=== PATIENT | female | born 1930 | race Caucasian/White ===

== ENCOUNTER 2016-09-10 19:05 | Inpatient (IN) | payer OTHER ==
--- NOTE | 2016-09-10 19:13 | EDPHY ---
H & P Time Seen by Provider: 09/10/16 19:06 HPI/ROS: CHIEF COMPLAINT: Altered mental status HISTORY OF PRESENT ILLNESS: Patient is an 86-year-old female who was talking on the phone with her daughter. Her daughter noted that her mental status started decreasing. She began slurring words. Patient's daughter called the patient's care facility. EMS was activated. Aircraft Painter found the patient hypoglycemic with the blood glucose of 33. She was given glucose. Her sugar improved to 179. The patient's mental status returned to normal. Patient is currently asymptomatic. She has no complaints. The patient's daughter requested that she be transferred to the hospital for further evaluation. The patient takes sliding scale insulin which is self administer. REVIEW OF SYSTEMS: My complete review of systems is negative except as mentioned in the HPI. Past Medical/Surgical History: Includes diabetes Smoking Status: Never smoked Physical Exam: Vitals noted GENERAL: Well-appearing, in no acute distress, alert. HEENT: Eyes normal to inspection, normal pharynx, no signs of dehydration. NECK: No thyromegaly, no lymphadenopathy, supple. RESPIRATORY: Clear to auscultation bilaterally, no rales, rhonchi or wheezing. CVS: Regular rate and rhythm, no rubs, murmurs, or gallops. ABDOMEN: Soft, nontender, nondistended, no organomegaly. BACK: Normal to inspection, no CVA tenderness. SKIN: Normal color, no rash, warm, dry. No pallor. EXTREMITIES: No pedal edema, no calf tenderness, no Homans sign or cords, no joint swelling. NEURO/PSYCH: Higher functions: Alert and Oriented x3. Normal speech and cognition. Normal mood and affect. Cranial nerves: Normal as tested. Cerebellar: Normal as tested. Good finger to nose, good [id number], normal gait. Peripheral exam: Normal motor exam. Normal sensation. Normal reflexes. Constitutional: Initial Vital Signs Temperature (C) 36.7 C 09/10/16 19:05 Heart Rate 61 09/10/16 19:05 Respiratory Rate 16 09/10/16 19:05 Blood Pressure 111/58 L 09/10/16 19:05 O2 Sat (%) 87 L 09/10/16 19:05 O2 Delivery Mode Nasal Cannula O2 (L/minute) 2 Allergies/Adverse Reactions: Sulfa (Sulfonamide Antibiotics) Allergy (Unknown, Verified 09/07/14 08:39) Home Medications: Medication Instructions Recorded Aspirin 81mg (OTC) 03/22/14 Atorvastatin Calcium 03/22/14 Donepezil HCl 03/22/14 GLIPIZIDE 03/22/14 Lantus 100 UNITS/ML (RX) 03/22/14 Losartan Potassium 03/22/14 Mapap 03/22/14 Namenda liquid 03/22/14 SENEXON-S TABLET 03/22/14 Medical Decision Making ED Course/Re-evaluation: In the emergency department I met EMS on arrival. I took report from the textile coating machine operator. Laboratory studies were ordered. Patient was given food. On the patient's initial i-STAT her creatinine was noted to be elevated 2.3. A CBC and chemistry panel were pending. The chemistry showed elevated BUN and creatinine of 2.2. Patient was given normal saline 500 mL IV. On recheck the patient's repeat creatinine was 2.1 and BUN was 40. Glucose was 85. Patient was given normal saline 500 mL IV. Discussed the plan for admission and observation. I discussed the case with Dr. Worrell. She will admit the patient. Differential Diagnosis: My differential includes but is not limited to hypoglycemia, hyperglycemia, electrolyte abnormality, bacteremia, sepsis, CVA, ACS, dysrhythmia, UTI - Data Points Laboratory Results: Laboratory Results 09/10/16 19:17 09/10/16 21:05 09/10/16 09/10/16 09/10/16 21:05 19:17 19:17 WBC 10.74 10^3/uL H 10^3/uL (3.80-9.50) RBC 4.26 10^6/uL 10^6/uL (4.18-5.33) Hgb 12.1 g/dL L g/dL (12.6-16.3) POC Hgb Hct 38.1 % % (38.0-47.0) POC Hct MCV 89.4 fL fL (81.5-99.8) MCH 28.4 pg pg (27.9-34.1) MCHC 31.8 g/dL L g/dL (32.4-36.7) RDW 15.0 % % (11.5-15.2) Plt Count 241 10^3/uL 10^3/uL (150-400) MPV 10.3 fL fL (8.7-11.7) Neut % (Auto) 79.5 % H % (39.3-74.2) Lymph % (Auto) 10.3 % L % (15.0-45.0) Dent % (Auto) 9.2 % % (4.5-13.0) Eos % (Auto) 0.4 % L % (0.6-7.6) Baso % (Auto) 0.3 % % (0.3-1.7) Nucleat RBC Rel Count 0.0 % % (0.0-0.2) Absolute Neuts (auto) 8.54 10^3/uL H 10^3/uL (1.70-6.50) Absolute Lymphs (auto) 1.11 10^3/uL 10^3/uL (1.00-3.00) Absolute Monos (auto) 0.99 10^3/uL H 10^3/uL (0.30-0.80) Absolute Eos (auto) 0.04 10^3/uL 10^3/uL (0.03-0.40) Absolute Basos (auto) 0.03 10^3/uL 10^3/uL (0.02-0.10) Absolute Nucleated RBC 0.00 10^3/uL 10^3/uL (0-0.01) Immature Gran % 0.3 % % (0.0-1.1) Immature Gran # 0.03 10^3/uL 10^3/uL (0.00-0.10) POC Sodium Sodium 141 mEq/L mEq/L 140 mEq/L mEq/L (134-144) (134-144) POC Potassium Potassium 4.9 mEq/L mEq/L 4.2 mEq/L mEq/L (3.5-5.2) (3.5-5.2) POC Chloride Chloride 106 mEq/L mEq/L 105 mEq/L mEq/L (97-110) (97-110) Carbon Dioxide 25 mEq/l mEq/l 25 mEq/l mEq/l (22-31) (22-31) Anion Gap 10 mEq/L mEq/L 10 mEq/L mEq/L (8-16) (8-16) POC BUN BUN 40 mg/dL H mg/dL 39 mg/dL H mg/dL (7-23) (7-23) Creatinine 2.1 mg/dL H mg/dL 2.2 mg/dL H mg/dL (0.6-1.0) (0.6-1.0) POC Creatinine Estimated GFR 22 21 Glucose 85 mg/dL mg/dL 119 mg/dL H mg/dL (70-100) (70-100) POC Glucose Calcium 8.3 mg/dL L mg/dL 8.5 mg/dL mg/dL (8.5-10.4) (8.5-10.4) 09/10/16 19:05 WBC RBC Hgb POC Hgb 12.9 gm/dL gm/dL (12.3-15.9) Hct POC Hct 38 % % (35.5-47.5) MCV MCH MCHC RDW Plt Count MPV Neut % (Auto) Lymph % (Auto) Dent % (Auto) Eos % (Auto) Baso % (Auto) Nucleat RBC Rel Count Absolute Neuts (auto) Absolute Lymphs (auto) Absolute Monos (auto) Absolute Eos (auto) Absolute Basos (auto) Absolute Nucleated RBC Immature Gran % Immature Gran # POC Sodium 143 mEq/L mEq/L (134-144) Sodium POC Potassium 4.0 mEq/L mEq/L (3.3-5.0) Potassium POC Chloride 104 mEq/L mEq/L (96-108) Chloride Carbon Dioxide Anion Gap POC BUN 35 mg/dL H mg/dL (7-23) BUN Creatinine POC Creatinine 2.3 mg/dL H mg/dL (0.6-1.2) Estimated GFR Glucose POC Glucose 137 mg/dL H mg/dL (70-100) Calcium Medications Given: Discontinued Medications Sodium Chloride (Ns) 500 mls @ 0 mls/hr IV ONCE ONE PRN Reason: Wide Open Stop: 09/10/16 20:03 Last Admin: 09/10/16 20:24 Dose: 500 mls Point of Care Test Results: 09/10/16 19:05 POC Sodium 143 POC Potassium 4.0 POC Chloride 104 POC BUN 35 H POC Creatinine 2.3 H POC Glucose 137 H Departure - Departure Disposition: [facility] Acute Clinical Impression: Hypoglycemia, Renal insufficiency Condition: Good Instructions: Hypoglycemia in a Person with Diabetes (ED) Additional Instructions: Eat regular meals. Referrals: Patient,NotPresent [Unknown] - As per Instructions
[2016-09-10 19:33] LABS: % IMMATURE GRANULYOCYTES 0.3 % (0.0-1.1); ABSOLUTE IMMATURE GRANULOCYTES 0.03 10^3/uL (0.00-0.10); ADD DIFF? NO; ADD MORPH? NO; ADD SCAN? NO; ATYPICAL LYMPHOCYTE FLAG 10 (0-99); FRAGMENT RBC FLAG 0 (0-99); HEMATOCRIT 38.1 % (38.0-47.0); HEMOGLOBIN 12.1 g/dL (12.6-16.3); LEFT SHIFT FLG 0 (0-99); LIPEMIA HEMOLYSIS FLAG 80 (0-99); MEAN CELL HEMOGLOBIN 28.4 pg (27.9-34.1); MEAN CELL HEMOGLOBIN CONCENTR. 31.8 g/dL (32.4-36.7); MEAN CELL VOLUME 89.4 fL (81.5-99.8); MEAN PLATELET VOLUME 10.3 fL (8.7-11.7); PLATELET CLUMPS FLAG 0 (0-99); PLATELET COUNT 241 10^3/uL (150-400); RED BLOOD CELL COUNT 4.26 10^6/uL (4.18-5.33)
[2016-09-10 19:52] LABS: ANION GAP 10 mEq/L (8-16); CALCIUM 8.5 mg/dL (8.5-10.4); CARBON DIOXIDE 25 mEq/l (22-31); CHLORIDE 105 mEq/L (97-110); CREATININE 2.2 mg/dL (0.6-1.0); GLOMERULAR FILTRATION RATE 21; GLUCOSE 119 mg/dL (70-100); POTASSIUM 4.2 mEq/L (3.5-5.2); SODIUM 140 mEq/L (134-144)
[2016-09-10] MEDS ORDERED: NS 500 ML IV ONE (20:02)
[2016-09-10 21:23] LABS: ANION GAP 10 mEq/L (8-16); CALCIUM 8.3 mg/dL (8.5-10.4); CARBON DIOXIDE 25 mEq/l (22-31); CHLORIDE 106 mEq/L (97-110); CREATININE 2.1 mg/dL (0.6-1.0); GLOMERULAR FILTRATION RATE 22; GLUCOSE 85 mg/dL (70-100); POTASSIUM 4.9 mEq/L (3.5-5.2); SODIUM 141 mEq/L (134-144)
[2016-09-10] MEDS ORDERED: ACETAMINOPHEN 500 MG TAB PO PRN (23:57)
[2016-09-10] MEDS ORDERED: ONDANSETRON DISINTEGRATING 4 MG TAB PO PRN (23:57)
[2016-09-10] MEDS ORDERED: ONDANSETRON 4 MG/2 ML VIAL IVP PRN (23:57)
[2016-09-10] MEDS ORDERED: oxyCODONE IR 5 MG TAB PO PRN (23:57)
[2016-09-11] MEDS ORDERED: D50W 25 GM/50 ML SYR IVP PRN
[2016-09-11] MEDS: NS 1,000 ML IV SCH ×2 (00:23→14:12)
--- NOTE | 2016-09-11 02:45 | PDGENHP ---
History and Physical - Chief Complaint hypoglycemia - History of Present Illness patient is an 86-year-old female with history of DM 2 on insulin, hypertension , hyperlipidemia and dementia who was brought to the ED after being found hypoglycemic in her assisted living facility. History from patient is limited due to her baseline dementia. Apparently patient was on the phone with her daughter earlier in the day, when she began slurring her words and sounded confused. Her daughter immediately called EMS to her mother's residence. Upon EMS arrival they found her blood sugar to be low at 33. IV was established and she was given IV dextrose in the field with immediate improvement in her mental status. She was then transported to the ED for further evaluation. Patient herself denies any recent illnesses, denies any fevers, chills, headache, dizziness, cough, nausea, vomiting, diarrhea. She states she has been maintaining her usual p.o. intake recently without a significant change. On arrival to the ED patient was afebrile hemodynamically stable, and fingerstick was noted to be 186. she was entirely asymptomatic, neurologically intact and back to her baseline mental status. Labs were obtained and revealed normal CBC, but elevated BUN and creatinine consistent with DEREJE. She was given gentle IV fluid hydration and admitted to the hospital service for further management. History Information - Allergies/Home Medication List Allergies/Adverse Reactions: Sulfa (Sulfonamide Antibiotics) Allergy (Unknown, Verified 01/12/14 08:39) Home Medications: Acetaminophen [Tylenol ES 500 mg (*)] 1,000 mg PO Q8H PRN 09/10/16 [Last Taken Unknown] Aspirin EC [Aspirin EC 81 mg (*)] 81 mg PO DAILY@09/10/16 [Last Taken ] Atorvastatin Calcium [Lipitor 20 mg (*)] 20 mg PO DAILY@09/10/16 [Last Taken 09/10/16] Bisacodyl [Dulcolax] 10 mg RC Q24H PRN 09/10/16 [Last Taken Unknown] Donepezil HCl 10 mg PO DAILY@09/10/16 [Last Taken 09/10/16] Ergocalciferol [Vitamin D2 (*)] 50,000 unit PO Q14D@09/10/16 [Last Taken 07/22] Escitalopram Oxalate [Lexapro] 10 mg PO DAILY@09/10/16 [Last Taken 09/10/16] Furosemide [Lasix 20 MG (*)] 20 mg PO DAILY@09/10/16 [Last Taken 09/10/16] Insulin Glargine [Lantus 100 UNITS/ML (*)] 25 units SC BID@08,09/10/16 [Last Taken 09/10/16] Insulin Lispro [humALOG LISPRO 100 units/ml (*)] 8 unit SC BID@,09/10/16 [ Last Taken 09/10/16 12:00] Insulin Lispro [humALOG LISPRO 100 units/ml (*)] 10 unit SC DAILY@09/10/16 [ Last Taken 09/10/16] Linagliptin [Tradjenta] 5 mg PO DAILY@09/10/16 [Last Taken 09/10/16] Losartan Potassium [Cozaar 25 mg (*)] 25 mg PO DAILY@09/10/16 [Last Taken 10/22] Mag Hydrox/Al Hydrox/Simeth [Maalox Maximum Strength Suspension] 30 ml PO Q8H PRN 09/10/16 [Last Taken Unknown] Memantine HCl [Namenda Xr] 28 mg PO DAILY@09/10/16 [Last Taken 09/10/16] Sennosides/Docusate Sodium [Senna-Docusate Sodium Tablet] 1 each PO BID@, [Last Taken 09/10/16] Solifenacin Succinate [Vesicare] 10 mg PO DAILY@09/10/16 [Last Taken 09/10/16 ] I have personally reviewed and updated: family history, medical history, social history, surgical history - Past Medical History Additional medical history: DM2. Hypertension. HLD. Dementia - Surgical History Reports: no pertinent surgical hx - Family History Positive for: non-pertinent - Social History Smoking Status: Never smoked Alcohol Use: None Drug Use: None Additional social history: Patient lives in assisted living facility, walks independently Review of Systems ROS: 10pt was reviewed & negative except for what was stated in HPI & below Physical Exam Temp Pulse Resp BP Pulse Ox 36.4 C 79 16 106/50 L 97 09/10/16 22:45 09/10/16 22:45 09/10/16 22:45 09/10/16 22:45 09/10/16 22:45 O2 (L/minute) 2 Constitutional: no apparent distress, appears nourished, not in pain Eyes: PERRL, anicteric sclera, EOMI Ears, Nose, Mouth, Throat: moist mucous membranes, hearing normal, ears appear normal, no oral mucosal ulcers Cardiovascular: regular rate and rhythym, no murmur, rub, or gallop, pulses symmetric bilaterally, No JVD, No edema Peripheral Pulses: 2+: dorsalis-pedis (R), dorsalis-pedis (L) Respiratory: no respiratory distress, no rales or rhonchi, clear to auscultation Gastrointestinal: normoactive bowel sounds, soft, non-tender abdomen, no palpable masses Genitourinary: no bladder fullness, no bladder tenderness Skin: warm, normal color, no rashes or abrasions, no fluctuance, no induration, No mottled Musculoskeletal: full muscle strength, no muscle tenderness, normal joint ROM, no joint effusions Neurologic: AAOx3, sensation intact bilaterally, CN II-XII Intact, No weakness, No numbness, No pronator drift, No facial droop Psychiatric: interacting appropriately, not anxious, not encephalopathic, thought process linear Lab Data & Imaging Review 09/10/16 19:17 09/10/16 21:05 WBC 10.74 10^3/uL (3.80-9.50) H 09/10/16 19: RBC 4.26 10^6/uL (4.18-5.33) 09/10/16 19: Hgb 12.1 g/dL (12.6-16.3) L 09/10/16 19: POC Hgb 12.9 gm/dL (12.3-15.9) 09/10/16 19:05 Hct 38.1 % (38.0-47.0) 09/10/16 19: POC Hct 38 % (35.5-47.5) 09/10/16 19:05 MCV 89.4 fL (81.5-99.8) 09/10/16 19: MCH 28.4 pg (27.9-34.1) 09/10/16 19: MCHC 31.8 g/dL (32.4-36.7) L 09/10/16 19:17 RDW 15.0 % (11.5-15.2) 09/10/16 19:17 Plt Count 241 10^3/uL (150-400) 09/10/16 19:17 MPV 10.3 fL (8.7-11.7) 09/10/16 19:17 Neut % (Auto) 79.5 % (39.3-74.2) H 09/10/16 19:17 Lymph % (Auto) 10.3 % (15.0-45.0) L 09/10/16 19:17 [place]ye % (Auto) 9.2 % (4.5-13.0) 09/10/16 19:17 Eos % (Auto) 0.4 % (0.6-7.6) L 09/10/16 19:17 Baso % (Auto) 0.3 % (0.3-1.7) 09/10/16 19:17 Nucleat RBC Rel Count 0.0 % (0.0-0.2) 09/10/16 19:17 Absolute Neuts (auto) 8.54 10^3/uL (1.70-6.50) H 09/10/16 19:17 Absolute Lymphs (auto) 1.11 10^3/uL (1.00-3.00) 09/10/16 19:17 Absolute Monos (auto) 0.99 10^3/uL (0.30-0.80) H 09/10/16 19:17 Absolute Eos (auto) 0.04 10^3/uL (0.03-0.40) 09/10/16 19:17 Absolute Basos (auto) 0.03 10^3/uL (0.02-0.10) 09/10/16 19:17 Absolute Nucleated RBC 0.00 10^3/uL (0-0.01) 09/10/16 19:17 Immature Gran % 0.3 % (0.0-1.1) 09/10/16 19:17 Immature Gran # 0.03 10^3/uL (0.00-0.10) 09/10/16 19:17 POC Sodium 143 mEq/L (134-144) 09/10/16 19:05 Sodium 141 mEq/L (134-144) 09/10/16 21:05 POC Potassium 4.0 mEq/L (3.3-5.0) 09/10/16 19:05 Potassium 4.9 mEq/L (3.5-5.2) 09/10/16 21:05 POC Chloride 104 mEq/L (96-108) 09/10/16 19:05 Chloride 106 mEq/L (97-110) 09/10/16 21:05 Carbon Dioxide 25 mEq/l (22-31) 09/10/16 21:05 Anion Gap 10 mEq/L (8-16) 09/10/16 21:05 POC BUN 35 mg/dL (7-23) H 09/10/16 19:05 BUN 40 mg/dL (7-23) H 09/10/16 21:05 Creatinine 2.1 mg/dL (0.6-1.0) H 09/10/16 21:05 POC Creatinine 2.3 mg/dL (0.6-1.2) H 09/10/16 19:05 Estimated GFR 22 09/10/16 21:05 Glucose 85 mg/dL (70-100) 09/10/16 21:05 POC Glucose 137 mg/dL (70-100) H 09/10/16 19:05 Calcium 8.3 mg/dL (8.5-10.4) L 09/10/16 21:05 Assessment & Plan Assessment: Patient is an 86-year-old female with a history of DM 2 on insulin, hypertension, hyperlipidemia and dementia who had an episode of confusion earlier in the day, was found to be significantly hypoglycemic by EMS. Dextrose was administered and by arrival to the ED patient was asymptomatic and back to her baseline mental status. However ED workup does reveal acute renal failure, so she was admitted for further observation and management. Plan: # acute hypoglycemia Patient is on several oral and injectable hypoglycemic agents, as well as insulin. There does not appear to have been an acute change, however, hypoglycemia is likely due to decreased clearance of her DM meds due to acute renal failure. FS on EMS's arrival was 33, after 1 amp D50 it was 186 on ED BMP. Repeat BMP shows glucose was again low at 85, and she was given her dinner at this time. MN check was 140. Will continue to monitor finger stick closely, hold noninsulin meds and provide only sliding scale coverage. When looking over her SNF fingerstick log, it appears she has had strict glucose control ( 80-120 range). Given her age, consider reducing her DM meds upon discharge. # acute renal failure BUN/Cr are elevated above previous known baseline on admission labs. Other electrolytes are normal. Suspect pre-renal etiology, as patient appears clinically dry on exam. Will continue IVF hydration overnight and continue to trend. Will also check UA, urine electrolytes. # hypertension BP stable, confirm and cont home meds # Dementia, acute encephalopathy Suspect acute encephalopathy daughter identified prior to arrival was due to acute hypoglycemia. With correction of her blood glucose, patient has returned to her baseline mental status and is nonfocal on exam. No indication for head imaging at this time. Will resume home dementia meds. #dispo: admit to observation for dereje/hypoglycemia # gen: diabetic diet DVT ppx: lovenox if staying > 24 hours Full code
[2016-09-11 04:37] LABS: COLOR YELLOW; LEUKOCYTE ESTERASE,URINE NEGATIVE (NEGATIVE); NITRITE,URINE NEGATIVE (NEGATIVE)
[2016-09-11 04:50] LABS: BACTERIA TRACE /hpf (NONE SEEN); MUCUS TRACE /lpf (NONE-1+)
[2016-09-11 05:03] LABS: % IMMATURE GRANULYOCYTES 0.6 % (0.0-1.1); ABSOLUTE IMMATURE GRANULOCYTES 0.06 10^3/uL (0.00-0.10); ADD DIFF? NO; ADD MORPH? NO; ADD SCAN? NO; ATYPICAL LYMPHOCYTE FLAG 10 (0-99); FRAGMENT RBC FLAG 0 (0-99); HEMATOCRIT 35.9 % (38.0-47.0); HEMOGLOBIN 11.4 g/dL (12.6-16.3); LEFT SHIFT FLG 0 (0-99); LIPEMIA HEMOLYSIS FLAG 80 (0-99); MEAN CELL HEMOGLOBIN 28.4 pg (27.9-34.1); MEAN CELL HEMOGLOBIN CONCENTR. 31.8 g/dL (32.4-36.7); MEAN CELL VOLUME 89.3 fL (81.5-99.8); MEAN PLATELET VOLUME 10.2 fL (8.7-11.7); PLATELET CLUMPS FLAG 0 (0-99); PLATELET COUNT 218 10^3/uL (150-400); RED BLOOD CELL COUNT 4.02 10^6/uL (4.18-5.33)
[2016-09-11 05:27] LABS: ANION GAP 7 mEq/L (8-16); CARBON DIOXIDE 24 mEq/l (22-31); CHLORIDE 110 mEq/L (97-110); CREATININE 1.9 mg/dL (0.6-1.0); GLOMERULAR FILTRATION RATE 25; GLUCOSE 107 mg/dL (70-100); INR 1.13 (0.83-1.16); MAGNESIUM 2.3 mg/dL (1.6-2.3); POTASSIUM 4.3 mEq/L (3.5-5.2); PROTIME(PATIENT) 14.4 SEC (12.0-15.0); SODIUM 141 mEq/L (134-144)
[2016-09-11 05:28] LABS: APTT 33.1 SEC (23.0-38.0)
[2016-09-11] MEDS: INSULIN LISPRO 100 UNIT/ML SC SCH ×3 (08:52→18:37)
[2016-09-11] MEDS: ENOXAPARIN 30 MG/0.3 ML SYR SC SCH (08:52)
[2016-09-11] MEDS ORDERED: ENOXAPARIN 40 MG/0.4 ML SYR SC SCH (09:00)
[2016-09-11] MEDS ORDERED: ACETAMINOPHEN 500 MG TAB PO PRN (14:47)
--- NOTE | 2016-09-11 14:52 | HOSPPROG ---
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 * probable chronic kidney disease * monitor creatinine * will DC IV fluids due to chronic lower extremity edema * possible home tomorrow Subjective: no new complaints Objective: Vital Signs Temp Pulse Resp BP Pulse Ox 37.1 C 72 16 115/63 93 09/11/16 07:50 09/11/16 07:50 09/11/16 07:50 09/11/16 07:50 09/11/16 07:50 Laboratory Results 09/11/16 04:40 09/11/16 04:40 09/10/16 09/11/16 09/12/16 05:59 05:59 05:59 Intake Total 852 480 Output Total 100 Balance 752 480 PT 14.4 SEC (12.0-15.0) 09/11/16 04:40 INR 1.13 (0.83-1.16) 09/11/16 04:40 - Physical Exam Constitutional: no apparent distress, appears nourished, not in pain Eyes: anicteric sclera, EOMI Ears, Nose, Mouth, Throat: moist mucous membranes, No hearing normal Cardiovascular: regular rate and rhythym, no murmur, rub, or gallop Respiratory: no respiratory distress, no rales or rhonchi, clear to auscultation Gastrointestinal: normoactive bowel sounds, soft, non-tender abdomen, no palpable masses Skin: other ( left buttock decubitus) Psychiatric: interacting appropriately, not anxious, not encephalopathic, thought process linear ICD10 Worksheet Patient Problems: Problems Problem Status Onset Hypoglycemia Acute Renal insufficiency Acute
--- NOTE | 2016-09-11 16:04 | WOCRNPDOC ---
[facility] Advanced Assessment Note - Skin Integrity Problem, Advanced Assess Left Buttock Dressing Type: Open to Air Exudate Amount: None Integumentary Issue Intervention: Barrier Cream Applied (to intact) Selina Wound Tissue: Erythema, Non-blanching, Intact, Scarred (cheloid-like tissue ) Selina Wound Swelling: Mild Wound Bed Color: [place], Purple (including periwound) Wound Bed Constitution: Smooth Tissue Wound Edges: Irregular, Scarred Site Odor: None Site Measurement - Head-to-Toe Length X Width X Depth (cm): ecchymotic area=5 x 4 x 0. open area=1x 2 x 0.3 Pressure Injury Stage: Deep Tissue Injury (DTI) Pressure Injury Present on Admit: Yes (per rn medical surgical assessment and H&P) Skin Integrity Problem Comment: Intact, diffusely discolored cheloid-like tissue with a roughened appearance has a narrow, abrasion-like opening in the middle. Patient is extremely hard of hearing, so it is difficult to ascertain any history of a prior wound at this site. Based of overall current presentation , it appears most like a deep tissue injury. Discussed care recommendations with TAI Chacon; and wrote a note to the patient to explain plan of care. plug sorter will round next on Monday, 09/18. Right buttock Dressing Type: Open to Air Exudate Characteristic(s): None Selina Wound Tissue: Erythema, Non-blanching, Intact Site Odor: None Site Measurement - Head-to-Toe Length X Width X Depth (cm): diffuse 4 x 4 x 0 Pressure Injury Stage: Stage 1 Pressure Injury Present on Admit: Yes (per rn medical surgical assessment and H&P) Skin Integrity Problem Comment: Area of erythema is mixed blanching at perimeter , and non-blanching at center. TAI Chacon is implementing protective/preventive plan of care.
[2016-09-11] MEDS: INSULIN GLARGINE 100 UNITS/ML SYRINGE SC SCH (16:41)
[2016-09-11] MEDS: ATORVASTATIN CALCIUM 20 MG TAB PO SCH (18:39)
[2016-09-11] MEDS: SENNOSIDES/DOCUSATE SODIUM TAB PO SCH (18:39)
[2016-09-11] MEDS: DONEPEZIL HCL 5 MG TAB PO SCH (18:39)
[2016-09-11] MEDS: SOLIFENACIN SUCCINATE 5 MG TAB PO SCH (18:40)
[2016-09-11] MEDS ORDERED: NON-FORMULARY NEW DRUG (Solifenacin Succinate [Vesicare] 10 MG) PO SCH (19:00)
[2016-09-11] MEDS ORDERED: NON-FORMULARY NEW DRUG (Donepezil Hcl [Donepezil Hcl] 10 MG) PO SCH (19:00)
[2016-09-11] MEDS: MEMANTINE HCL 5 MG TAB PO SCH (20:15)
[2016-09-11] MEDS ORDERED: INSULIN LISPRO 100 UNIT/ML SC ONE (20:40)
[2016-09-12 05:36] LABS: % IMMATURE GRANULYOCYTES 0.6 % (0.0-1.1); ABSOLUTE IMMATURE GRANULOCYTES 0.05 10^3/uL (0.00-0.10); ADD DIFF? NO; ADD MORPH? NO; ADD SCAN? NO; ATYPICAL LYMPHOCYTE FLAG 10 (0-99); FRAGMENT RBC FLAG 0 (0-99); HEMATOCRIT 34.9 % (38.0-47.0); LEFT SHIFT FLG 0 (0-99); LIPEMIA HEMOLYSIS FLAG 80 (0-99); MEAN CELL HEMOGLOBIN 28.5 pg (27.9-34.1); MEAN CELL HEMOGLOBIN CONCENTR. 31.5 g/dL (32.4-36.7); MEAN CELL VOLUME 90.4 fL (81.5-99.8); MEAN PLATELET VOLUME 10.5 fL (8.7-11.7); PLATELET CLUMPS FLAG 0 (0-99); PLATELET COUNT 207 10^3/uL (150-400); RED BLOOD CELL COUNT 3.86 10^6/uL (4.18-5.33); RED CELL DISTRIBUTION WIDTH 14.8 % (11.5-15.2)
[2016-09-12 06:01] LABS: ANION GAP 5 mEq/L (8-16); CALCIUM 8.4 mg/dL (8.5-10.4); CARBON DIOXIDE 23 mEq/l (22-31); CHLORIDE 109 mEq/L (97-110); CREATININE 1.8 mg/dL (0.6-1.0); GLOMERULAR FILTRATION RATE 27; GLUCOSE 180 mg/dL (70-100); SODIUM 137 mEq/L (134-144)
[2016-09-12] MEDS ORDERED: NON-FORMULARY NEW DRUG (Memantine Hcl [Namenda Xr] 28 MG) PO SCH (07:00)
[2016-09-12] MEDS: ENOXAPARIN 30 MG/0.3 ML SYR SC SCH (09:49)
[2016-09-12] MEDS: ESCITALOPRAM OXALATE 10 MG TAB PO SCH (09:49)
[2016-09-12] MEDS: LOSARTAN POTASSIUM 25 MG TAB PO SCH (09:49)
[2016-09-12] MEDS: MEMANTINE HCL 5 MG TAB PO SCH ×2 (09:49→19:57)
[2016-09-12] MEDS: SENNOSIDES/DOCUSATE SODIUM TAB PO SCH ×2 (09:49→18:37)
[2016-09-12] MEDS: FUROSEMIDE 20 MG TAB PO SCH (09:49)
[2016-09-12] MEDS: ASPIRIN EC 81 MG TAB PO SCH (09:49)
[2016-09-12] MEDS: INSULIN LISPRO 100 UNIT/ML SC SCH ×3 (09:50→18:42)
[2016-09-12] MEDS: INSULIN GLARGINE 100 UNITS/ML SYRINGE SC SCH (09:50)
--- NOTE | 2016-09-12 15:37 | HOSPPROG ---
Hospitalist Progress Note Assessment/Plan: # DM/hypoglycemia - I wonder if her hypoglycemia is related to recent worsening of her renal fxn - cont lower dose insulin (lantus only) - will not target tight control # dementia # pressure injuries, POA # DEREJE vs CKD - recheck again tomorrow # chronic LE edema Subjective: no complaints today Objective: Vital Signs Temp Pulse Resp BP Pulse Ox 36.6 C 56 L 14 117/53 L 97 09/12/16 11:30 09/12/16 11:30 09/12/16 11:30 09/12/16 11:30 09/12/16 11:30 Laboratory Results 09/12/16 05:07 09/12/16 05:07 09/11/16 09/12/16 09/13/16 05:59 05:59 05:59 Intake Total 1039 Output Total 25 Balance 1014 PT 14.4 SEC (12.0-15.0) 09/11/16 04:40 INR 1.13 (0.83-1.16) 09/11/16 04:40 - Physical Exam Constitutional: no apparent distress, appears nourished Cardiovascular: regular rate and rhythym, no murmur, rub, or gallop Respiratory: no respiratory distress, no rales or rhonchi, clear to auscultation Gastrointestinal: normoactive bowel sounds, soft, non-tender abdomen, no palpable masses ICD10 Worksheet Patient Problems: Problems Problem Status Onset Hypoglycemia Acute Renal insufficiency Acute
[2016-09-12] MEDS: ATORVASTATIN CALCIUM 20 MG TAB PO SCH (18:37)
[2016-09-12] MEDS: SOLIFENACIN SUCCINATE 5 MG TAB PO SCH (18:37)
[2016-09-12] MEDS: DONEPEZIL HCL 5 MG TAB PO SCH (18:37)
[2016-09-13 06:09] LABS: ANION GAP 8 mEq/L (8-16); CALCIUM 8.4 mg/dL (8.5-10.4); CARBON DIOXIDE 23 mEq/l (22-31); CHLORIDE 107 mEq/L (97-110); CREATININE 1.8 mg/dL (0.6-1.0); GLOMERULAR FILTRATION RATE 27; GLUCOSE 132 mg/dL (70-100); POTASSIUM 4.3 mEq/L (3.5-5.2); SODIUM 138 mEq/L (134-144)
[2016-09-13] MEDS: INSULIN LISPRO 100 UNIT/ML SC SCH ×3 (09:35→18:27)
[2016-09-13] MEDS: INSULIN GLARGINE 100 UNITS/ML SYRINGE SC SCH (09:44)
[2016-09-13] MEDS: MEMANTINE HCL 5 MG TAB PO SCH ×2 (09:45→21:21)
[2016-09-13] MEDS: FUROSEMIDE 20 MG TAB PO SCH (09:45)
[2016-09-13] MEDS: ASPIRIN EC 81 MG TAB PO SCH (09:48)
[2016-09-13] MEDS: SENNOSIDES/DOCUSATE SODIUM TAB PO SCH ×2 (09:48→18:27)
[2016-09-13] MEDS: ESCITALOPRAM OXALATE 10 MG TAB PO SCH (09:48)
[2016-09-13] MEDS: LOSARTAN POTASSIUM 25 MG TAB PO SCH (09:51)
[2016-09-13] MEDS: ENOXAPARIN 30 MG/0.3 ML SYR SC SCH (09:51)
--- NOTE | 2016-09-13 16:32 | HOSPPROG ---
Hospitalist Progress Note Assessment/Plan: # DM/hypoglycemia - I wonder if her hypoglycemia is related to recent worsening of her renal fxn - glucs appropriate on glargine monotherapy # dementia # pressure injuries, POA # DEREJE vs CKD - stable, has nephrology f/u # chronic LE edema # htn - losartan Subjective: no complaints, no acute events Objective: Vital Signs Temp Pulse Resp BP Pulse Ox 37.2 C 75 18 127/61 H 90 L 09/13/16 15:42 09/13/16 15:42 09/13/16 15:42 09/13/16 15:42 09/13/16 15:42 Laboratory Results 09/12/16 05:07 09/13/16 04:43 09/12/16 09/13/16 09/14/16 05:59 05:59 05:59 Intake Total 1039 300 Output Total 25 Balance 1014 300 PT 14.4 SEC (12.0-15.0) 09/11/16 04:40 INR 1.13 (0.83-1.16) 09/11/16 04:40 - Physical Exam Constitutional: no apparent distress Cardiovascular: regular rate and rhythym, no murmur, rub, or gallop Respiratory: no respiratory distress, no rales or rhonchi, clear to auscultation Gastrointestinal: normoactive bowel sounds, soft, non-tender abdomen, no palpable masses ICD10 Worksheet Patient Problems: Problems Problem Status Onset Hypoglycemia Acute Renal insufficiency Acute
[2016-09-13] MEDS: SOLIFENACIN SUCCINATE 5 MG TAB PO SCH (18:27)
[2016-09-13] MEDS: DONEPEZIL HCL 5 MG TAB PO SCH (18:27)
[2016-09-13] MEDS: ATORVASTATIN CALCIUM 20 MG TAB PO SCH (18:27)
[2016-09-14] MEDS: LOSARTAN POTASSIUM 25 MG TAB PO SCH (06:23)
[2016-09-14] MEDS: ASPIRIN EC 81 MG TAB PO SCH (06:23)
[2016-09-14] MEDS: ESCITALOPRAM OXALATE 10 MG TAB PO SCH (06:23)
[2016-09-14] MEDS: SENNOSIDES/DOCUSATE SODIUM TAB PO SCH ×2 (06:24→18:14)
[2016-09-14] MEDS: MEMANTINE HCL 5 MG TAB PO SCH ×2 (10:25→20:33)
[2016-09-14] MEDS: ENOXAPARIN 30 MG/0.3 ML SYR SC SCH (10:25)
[2016-09-14] MEDS: FUROSEMIDE 20 MG TAB PO SCH (10:25)
[2016-09-14] MEDS: INSULIN GLARGINE 100 UNITS/ML SYRINGE SC SCH (10:25)
[2016-09-14] MEDS: INSULIN LISPRO 100 UNIT/ML SC SCH ×3 (10:25→18:14)
[2016-09-14] MEDS ORDERED: PNEUMOC 13-VAL CONJ-DIP CRM/PF 0.5 ML SYR IM ONE (11:33)
--- NOTE | 2016-09-14 17:38 | HOSPPROG ---
Hospitalist Progress Note Assessment/Plan: # DM/hypoglycemia - I wonder if her hypoglycemia is related to recent worsening of her renal fxn - glucs appropriate on glargine monotherapy # dementia # pressure injuries, POA # DEREJE vs CKD - stable, has nephrology f/u - recheck tomorrow # chronic LE edema # htn - losartan # dispo - hopefully to SNF soon Subjective: does not want to go to SNF Objective: Vital Signs Temp Pulse Resp BP Pulse Ox 36.9 C 67 16 130/67 H 94 09/14/16 16:00 09/14/16 16:00 09/14/16 16:00 09/14/16 16:00 09/14/16 16:00 Laboratory Results 09/12/16 05:07 09/13/16 04:43 09/13/16 09/14/16 09/15/16 05:59 05:59 05:59 Intake Total 300 1480 Balance 300 1480 PT 14.4 SEC (12.0-15.0) 09/11/16 04:40 INR 1.13 (0.83-1.16) 09/11/16 04:40 - Physical Exam Constitutional: no apparent distress, appears nourished ICD10 Worksheet Patient Problems: Problems Problem Status Onset Hypoglycemia Acute Renal insufficiency Acute
[2016-09-14] MEDS: ATORVASTATIN CALCIUM 20 MG TAB PO SCH (18:14)
[2016-09-14] MEDS: SOLIFENACIN SUCCINATE 5 MG TAB PO SCH (18:15)
[2016-09-14] MEDS: DONEPEZIL HCL 5 MG TAB PO SCH (18:15)
[2016-09-15] MEDS: SENNOSIDES/DOCUSATE SODIUM TAB PO SCH (06:14)
[2016-09-15] MEDS: ASPIRIN EC 81 MG TAB PO SCH (06:14)
[2016-09-15] MEDS: LOSARTAN POTASSIUM 25 MG TAB PO SCH (06:14)
[2016-09-15] MEDS: ESCITALOPRAM OXALATE 10 MG TAB PO SCH (06:14)
[2016-09-15 06:26] LABS: ANION GAP 8 mEq/L (8-16); CALCIUM 8.4 mg/dL (8.5-10.4); CARBON DIOXIDE 27 mEq/l (22-31); CHLORIDE 101 mEq/L (97-110); CREATININE 1.6 mg/dL (0.6-1.0); GLOMERULAR FILTRATION RATE 31; GLUCOSE 180 mg/dL (70-100); POTASSIUM 4.1 mEq/L (3.5-5.2); SODIUM 136 mEq/L (134-144)
[2016-09-15 07:31] VITALS: PULSE 57; RESP 18
[2016-09-15] MEDS: FUROSEMIDE 20 MG TAB PO SCH (08:01)
[2016-09-15] MEDS: INSULIN GLARGINE 100 UNITS/ML SYRINGE SC SCH (08:01)
[2016-09-15] MEDS: MEMANTINE HCL 5 MG TAB PO SCH (08:01)
[2016-09-15] MEDS: ENOXAPARIN 30 MG/0.3 ML SYR SC SCH (08:02)
[2016-09-15] MEDS: INSULIN LISPRO 100 UNIT/ML SC SCH ×2 (08:02→12:18)
--- NOTE | 2016-09-15 11:30 | PDIAF ---
- Diagnosis Diagnosis: Hypoglycemia Code Status: Full Code - Medication Management Discharge Medications: Medications to Continue on Transfer Acetaminophen [Tylenol ES 500 mg (*)] 1,000 mg PO Q8H PRN 09/10/16 [Last Taken Unknown] Aspirin EC [Aspirin EC 81 mg (*)] 81 mg PO DAILY@09/10/16 [Last Taken ] Atorvastatin Calcium [Lipitor 20 mg (*)] 20 mg PO DAILY@09/10/16 [Last Taken 09/10/16] Bisacodyl [Dulcolax] 10 mg RC Q24H PRN 09/10/16 [Last Taken Unknown] Donepezil HCl 10 mg PO DAILY@09/10/16 [Last Taken 09/10/16] Ergocalciferol [Vitamin D2 (*)] 50,000 unit PO Q14D@09/10/16 [Last Taken 07/22] Escitalopram Oxalate [Lexapro 10 MG] 10 mg PO DAILY@09/10/16 [Last Taken 10/22] Furosemide [Lasix 20 MG (*)] 20 mg PO DAILY@09/10/16 [Last Taken 09/10/16] Losartan Potassium [Cozaar 25 mg (*)] 25 mg PO DAILY@09/10/16 [Last Taken 10/22] Mag Hydrox/Al Hydrox/Simeth [Maalox Maximum Strength Suspension] 30 ml PO Q8H PRN 09/10/16 [Last Taken Unknown] Memantine HCl [Namenda Xr] 28 mg PO DAILY@09/10/16 [Last Taken 09/10/16] Sennosides/Docusate Sodium [Senna-Docusate Sodium Tablet] 1 each PO BID@ [Last Taken 09/10/16] Solifenacin Succinate [Vesicare] 10 mg PO DAILY@09/10/16 [Last Taken 09/10/16 ] Insulin Glargine [Lantus 100 UNITS/ML (*)] 25 units SC DAILY ml 09/15/16 [Last Taken Unknown] Memantine HCl [Namenda 5 mg (*)] 5 mg PO BID tab 09/15/16 [Last Taken Unknown] Discharge Medications: Refer to the Discharge Home Medication list for PRN reason. - Orders Services needed: Registered Nurse, Certified Hazardous Waste Material Technician, Physical Therapy, Occupational Therapy Diet Recommendation: no restrictions on diet - Follow Up Care Current Providers and Referrals: Patient,NotPresent [Unknown] - As per Instructions
[2016-09-15 11:50] VITALS: BP 131/62; TEMP 98; O2SAT 94
--- NOTE | 2016-09-15 12:01 | GDS ---
[f rep st] DISCHARGE SUMMARY ALL DIAGNOSIS: 1. Diabetes mellitus type 2 with hypoglycemic episode. 2. Dementia. 3. Pressure injuries present on arrival. 4. Suspected chronic kidney disease. 5. Chronic lower extremity edema. 6. Hypertension. HOSPITAL COURSE: An 86-year-old female presented after a hypoglycemic episode. She is on insulin a s well as other antihyperglycemics. I think the etiology of her hypoglycemia is worsening renal rosamaria lure without changing her insulin doses. As an inpatient. I have cut her back to only long-acting glargine without any hypoglycemia and with reasonably well-controlled. Glucoses. I would not amanda ate tight control in her, given her age and her underlying dementia. She has been evaluated by PT and OT who feel that she would be best suited by being discharged to a [facility]dc facility. Her son has also been involved in this discussion. He agrees with this. PLAN: 1. Would follow her glucoses somewhat closely for the next week or 2. 2. She needs a referral to Nephrology, which her son tells me she has already gotten. Her creatini ne on discharge is 1.6. BILLING: I spent more than 30 minutes on the day of discharge coordinating her care. /[id number]/MODL
== END 2016-09-15 12:56 | DRG 639 ==
LOC: EDUNIT# → F1N 22:30 → OBSVTOIN 09-11 14:50
PROVIDERS: ADMIT Internal Medicine; ATTEND Student in an Organized Health Care Education/Training Program
DX: E11.649 Type 2 diabetes mellitus with hypoglycemia without coma (principal); I12.9 Hypertensive chronic kidney disease with stage 1 through stage 4 chronic kidney disease, or unspecified chronic kidney disease; E11.21 Type 2 diabetes mellitus with diabetic nephropathy; N18.9 Chronic kidney disease, unspecified; E78.5 Hyperlipidemia, unspecified; F03.90 Unspecified dementia, unspecified severity, without behavioral disturbance, psychotic disturbance, mood disturbance, and anxiety; L89.311 Pressure ulcer of right buttock, stage 1; L89.329 Pressure ulcer of left buttock, unspecified stage; R60.0 Localized edema
CPT/HCPCS: 82947-QW; 97116-GP; 97162-GP; 97165-GO; G0009; G0378; J1650; J1815; J2405

== ENCOUNTER 2017-03-01 17:05 | Inpatient (IN) | payer OTHER ==
--- NOTE | 2017-03-01 17:16 | EDPHY ---
H & P Time Seen by Provider: 03/01/17 17:08 HPI/ROS: CHIEF COMPLAINT: Left thigh pain HISTORY OF PRESENT ILLNESS: Patient had mechanical fall at 4:40 p.m. tonight was brought in by EMS unable to walk. She has pain in her left thigh which is mild at rest but severe with any palpation or motion. Unable to stand. No LOC or syncope or headache. Of note on arrival ems notes that her heart rate went down to a low of 28 in sinus, patient never had any chest pain or shortness of breath. Denies neck pain or weakness or numbness in extremities. REVIEW OF SYSTEMS: Eye: no change in vision ENT: no sore throat, chronically hard of hearing Cardiac: no chest pain or syncope Pulmonary: no cough or SOB Abdomen: no vomiting, diarrhea, abdominal pain Musculoskeletal: no back pain or neck pain Skin: no rash Neuro: no headache Constitutional: no fever : no urinary symptoms A comprehensive 10 point review of systems is otherwise negative aside from elements mentioned in the history of present illness. PAST MEDICAL HISTORY: Includes diabetes and anemia. Depression. Social history: Resident at [facility] Appearance: Alert and conversant, cooperative. Eyes: No scleral icterus. ENT, Mouth: Normal mucous membranes. Respiratory: Normal respiratory effort, breath sounds equal, lungs are clear to auscultation. Cardiovascular: Regular rate and rhythm. Gastrointestinal: Abdomen is soft and non tender. Neurological: Alert and follows commands. Hard of hearing. Normally conversant. Face symmetric, normal movement and sensation in all extremities. Skin: Warm and dry, no rashes. No laceration left leg. Musculoskeletal: No midline cervical thoracic or lumbar spine tenderness. She has tenderness in the mid left femur but no laceration or abrasion. Pain with rotation or axial loading of that side. Left knee tib-fib ankle and foot are normal. Normal motor sensory and dorsalis pedis in the left foot. Psychiatric: Not agitated. Emergency Department course/MDM: Morphine 4 mg IV. X-rays of the left femur. Labs to include troponin, EKG. Discussed with hospitalist and orthopedic surgeon. Patient tells me she last ate or drink was at noon today. Admission for open reduction internal fixation. Smoking Status: Never smoked Constitutional: Initial Vital Signs Temperature (C) 36.4 C 03/01/17 17:05 Heart Rate 50 L 03/01/17 17:05 Respiratory Rate 18 03/01/17 17:05 Blood Pressure 155/81 H 03/01/17 17:05 O2 Sat (%) 94 03/01/17 17:05 O2 Delivery Mode Room Air Allergies/Adverse Reactions: Sulfa (Sulfonamide Antibiotics) Allergy (Unknown, Verified 03/01/17 17:19) Home Medications: Medication Instructions Recorded Acetaminophen [Tylenol ES 500 mg 1,000 mg PO Q8H PRN 09/10/16 (*)] Aspirin EC [Aspirin EC 81 mg (*)] 81 mg PO DAILY@09/10/16 Atorvastatin Calcium [Lipitor 20 20 mg PO DAILY@09/10/16 mg (*)] Bisacodyl [Dulcolax] 10 mg RC Q24H PRN 09/10/16 Donepezil HCl 10 mg PO DAILY@09/10/16 Ergocalciferol [Vitamin D2 (*)] 50,000 unit PO Q14D@09/10/16 Escitalopram Oxalate [Lexapro 10 10 mg PO DAILY@09/10/16 MG] Furosemide [Lasix 20 MG (*)] 20 mg PO DAILY@09/10/16 Losartan Potassium [Cozaar 25 mg 25 mg PO DAILY@09/10/16 (*)] Mag Hydrox/Al Hydrox/Simeth 30 ml PO Q8H PRN 09/10/16 [Maalox Maximum Strength Suspension] Memantine HCl [Namenda Xr] 28 mg PO DAILY@09/10/16 Sennosides/Docusate Sodium 1 each PO BID@,09/10/16 [Senna-Docusate Sodium Tablet] Solifenacin Succinate [Vesicare] 10 mg PO DAILY@09/10/16 Insulin Glargine [Lantus 100 25 units SC DAILY ml 09/15/16 UNITS/ML (*)] Memantine HCl [Namenda 5 mg (*)] 5 mg PO BID tab 09/15/16 Medical Decision Making - Diagnostics EKG Interpretation: 12-lead EKG interpreted by me; official reading is in trace master. My interpretation is sinus rhythm rate 58 with nonspecific conduction delay. Imaging Results: Imaging Impressions Femur X-Ray 03/01/17 17:14 Impression: No additional femoral fracture identified. Pelvis X-Ray 03/01/17 17:14 Impression: Comminuted proximal left femoral fracture. Differential Diagnosis: Differential considered including but not limited to femur fracture, hip fracture, pelvic fracture, hip dislocation. Consult/Admit Bed Type: Jerry Avila 2 [phone]; [facility] [id number] - Data Points Laboratory Results: Laboratory Results 03/01/17 17:10 03/01/17 17:10 03/01/17 03/01/17 17:10 17:10 WBC 18.19 10^3/uL H 10^3/uL (3.80-9.50) RBC 4.81 10^6/uL 10^6/uL (4.18-5.33) Hgb 14.0 g/dL g/dL (12.6-16.3) Hct 42.7 % % (38.0-47.0) MCV 88.8 fL fL (81.5-99.8) MCH 29.1 pg pg (27.9-34.1) MCHC 32.8 g/dL g/dL (32.4-36.7) RDW 14.5 % % (11.5-15.2) Plt Count 239 10^3/uL 10^3/uL (150-400) MPV 11.0 fL fL (8.7-11.7) Neut % (Auto) 72.2 % % (39.3-74.2) Lymph % (Auto) 17.7 % % (15.0-45.0) [place] % (Auto) 6.9 % % (4.5-13.0) Eos % (Auto) 2.3 % % (0.6-7.6) Baso % (Auto) 0.4 % % (0.3-1.7) Nucleat RBC Rel Count 0.0 % % (0.0-0.2) Absolute Neuts (auto) 13.13 10^3/uL H 10^3/uL (1.70-6.50) Absolute Lymphs (auto) 3.22 10^3/uL H 10^3/uL (1.00-3.00) Absolute Monos (auto) 1.26 10^3/uL H 10^3/uL (0.30-0.80) Absolute Eos (auto) 0.41 10^3/uL H 10^3/uL (0.03-0.40) Absolute Basos (auto) 0.08 10^3/uL 10^3/uL (0.02-0.10) Absolute Nucleated RBC 0.00 10^3/uL 10^3/uL (0-0.01) Immature Gran % 0.5 % % (0.0-1.1) Immature Gran # 0.09 10^3/uL 10^3/uL (0.00-0.10) Sodium 140 mEq/L mEq/L (134-144) Potassium 4.2 mEq/L mEq/L (3.5-5.2) Chloride 95 mEq/L L mEq/L (97-110) Carbon Dioxide 27 mEq/l mEq/l (22-31) Anion Gap 18 mEq/L H mEq/L (8-16) BUN 59 mg/dL H mg/dL (7-23) Creatinine 2.2 mg/dL H mg/dL (0.6-1.0) Estimated GFR 21 Glucose 278 mg/dL H mg/dL (70-100) Calcium 10.1 mg/dL mg/dL (8.5-10.4) Troponin I < 0.012 ng/mL ng/mL (0.000-0.034) Medications Given: Sodium Chloride (Ns) 1,000 mls @ 125 mls/hr IV CONT DOROTHY Stop: 08/28/17 18:29 Last Admin: 03/01/17 18:43 Dose: 1,000 mls Discontinued Medications Morphine Sulfate (Morphine) 4 mg IVP EDNOW ONE Stop: 03/01/17 17:15 Last Admin: 03/01/17 17:29 Dose: 4 mg Departure - Departure Disposition: [facility] Inpatient Acute Clinical Impression: Closed left subtrochanteric femur fracture Qualifiers: Encounter type: initial encounter Fracture alignment: displaced Qualified Code( s): S72.22XA - Displaced subtrochanteric fracture of left femur, initial encounter for closed fracture Condition: Good
[2017-03-01 17:20] LABS: PLATELET COUNT 239 10^3/uL (150-400)
--- NOTE | 2017-03-01 17:43 | CPEKG ---
Heart Rate: 58 RR Interval: 1034 P-R Interval: 144 QRSD Interval: 110 QT Interval: 384 QTC Interval: 378 P [place]: 69 QRS [place]: 34 T Wave [place]: -6 EKG Severity - ABNORMAL ECG - EKG Impression: SINUS RHYTHM EKG Impression: NONSPECIFIC INTRAVENTRICULAR CONDUCTION DELAY EKG Impression: LOW VOLTAGE IN FRONTAL LEADS Electronically Signed By: Milad Alcaraz 01-Mar-2017 17:54:33
--- NOTE | 2017-03-01 17:43 | CPEKG ---
Heart Rate: 58 RR Interval: 1034 P-R Interval: 144 QRSD Interval: 110 QT Interval: 384 QTC Interval: 378 P [place]: 69 QRS [place]: 34 T Wave [place]: -6 EKG Severity - ABNORMAL ECG - EKG Impression: SINUS RHYTHM EKG Impression: NONSPECIFIC INTRAVENTRICULAR CONDUCTION DELAY EKG Impression: LOW VOLTAGE IN FRONTAL LEADS Electronically Signed By: Milad Alcaraz 01-Mar-2017 17:54:33
[2017-03-01] MEDS ORDERED: NS 1,000 ML IV SCH (18:30)
[2017-03-01] MEDS ORDERED: LR 1,000 ML IV ONE (20:55)
[2017-03-01] MEDS ORDERED: ONDANSETRON 4 MG/2 ML VIAL IVP PRN ×2 (21:31→23:25)
[2017-03-01] MEDS ORDERED: D50W 25 GM/50 ML SYR IVP PRN (21:31)
[2017-03-01] MEDS ORDERED: ACETAMINOPHEN 325 MG TAB PO PRN (21:31)
[2017-03-01] MEDS ORDERED: fentaNYL 100 MCG/2 ML INJ ONE (21:55)
[2017-03-01] MEDS ORDERED: PROPOFOL 200 MG/20 ML VIAL ONE (21:55)
[2017-03-01] MEDS ORDERED: ROCURONIUM 100 MG/10 ML VIAL ONE (21:56)
[2017-03-01] MEDS ORDERED: BUPIVACAINE 0.5% 30 ML SDV ONE (21:56)
[2017-03-01] MEDS ORDERED: LIDOCAINE 2% 5 ML SDV ONE (21:56)
[2017-03-01] MEDS ORDERED: LIDOCAINE 1% 300 MG/30 ML SDV ONE (21:56)
--- NOTE | 2017-03-01 22:18 | GHP ---
[f rep st] HISTORY AND PHYSICAL DATE OF ADMISSION: 03/01/2017 CHIEF COMPLAINT: Hip pain. HISTORY OF PRESENT ILLNESS: The patient is an 86-year-old female, who lives at assisted living. She fell at 4 o'clock today. She fell onto her left hip and now has pain with any movement. EMS was lizbeth bhandari. On route, she was noted in the ambulance to have a transient heart rate of 28, but no strips w ere obtained. She did not have any symptoms. She denies any chest pain or shortness of breath. She does remember falling, but she cannot exactly say why she fell or whether or not she tripped. She s tates she just fell. She does deny any preceding chest pain, shortness of breath, or lightheadedness . When asked whether or not she has been eating and drinking normally, she stated she drinks water o nly sometimes. She also admits to an occasional cough, but otherwise is asymptomatic. PAST MEDICAL HISTORY: 1. Diabetes type 2. 2. Dementia. 3. Chronic kidney disease. Baseline creatinine 1.8. 4. Hypertension. MEDICATIONS: Please see computer record for full detailed list. ALLERGIES: Sulfa. SOCIAL HISTORY: No smoking. No alcohol. She lives at [facility]. REVIEW OF SYSTEMS: Complete review of systems obtained. Review of systems negative regarding CONSTI TUTIONAL, HEENT, GI, PULMONARY, CARDIOVASCULAR, , HEMATOLOGY, SKIN, MUSCULAR, ENDOCRINE, PSYCH. Si gnificant for positives as in HPI. FAMILY HISTORY: Reviewed, noncontributory to presenting complaint. PHYSICAL EXAMINATION: GENERAL: Well-developed, well-nourished female, in no distress. VITAL SIGNS: Temperature is 36.4, pulse of 50, blood pressure 155/89, saturating 94% on room air. EYES: Normal conjunctivae. Pupils are equal, react to light. ENT: Normal ears and nose. Hearing intact. Norm al lips and teeth. Oropharynx is very dry. NECK: Trachea midline. No thyromegaly. CHEST: Normal inspiratory effort. LUNGS: Clear to auscultation bilaterally. CARDIOVASCULAR: Regular rhythm. N o murmur. No lower extremity edema. ABDOMEN: Soft, nontender. No hepatosplenomegaly. SKIN: Warm , dry, intact. No rash. MUSCULOSKELETAL: No cyanosis or clubbing. Strength 5/5 upper and lower ex tremities. NEUROLOGIC: Cranial nerves intact. Normal station to light touch. PSYCH: Awake, alert oriented x3. Normal mood and affect. Normal judgment and insight. Normal memory. LABORATORY DATA: White count 18.19, hematocrit 42.7, platelets 239. Sodium 140, potassium 4.2, chlo ride 45, bicarb 27, BUN 59, creatinine 2.2, glucose 278. Troponins negative. EKG viewed by me. My personal interpretation is normal sinus rhythm, diffuse T-wave flattening. Hip x-ray shows a left pr oximal femur fracture. ASSESSMENT/PLAN: 1. Left hip fracture. I suspect she fell due to dehydration and subsequent weakness. I do not thin k she had a syncopal event. Dr. Avila is production specialist from [facility] and is bringing her to [facility] imminently tonight. Postoperatively, deep venous thrombosis prophylaxis will need to be address ed. 2. Acute renal failure superimposed on chronic kidney disease. She is clearly dry. Will hydrate wi th intravenous fluids. Will hold her ARB and diuretic. 3. Diabetes type 2. Need to resume her usual insulin when her medication reconciliation is complete . For now, will use an insulin sliding scale. 4. Bradycardia episode. I suspect she is vagal, as she was likely in some pain related to the hip f racture. We will continue to watch her on telemetry and look for any recurrence of bradycardic episo chip. Pacemaker is indicated only if symptomatic bradycardia is uncovered and/or a high degree heart block. 5. Leukocytosis. I will check a chest x-ray and a urinalysis. CODE STATUS: Full. ADMISSION STATUS: Will admit to inpatient. I anticipate greater than 2 midnights required for stabi lization. DVT prophylaxis. Given her kidney failure, pharmacy is recommending subcu heparin for DVT prophylaxi s even though she has a hip fracture. /[id number]/MODL
--- NOTE | 2017-03-01 22:19 | SOAPPROG ---
VAL Progress Note Assessment/Plan: Assessment:Terese is a pleasant 86 year old female who presents to the office today with left hip pain after a fall earlier today. She was taken to [facility] ER and was found to have a left intertrochanteric femur fracture. PE: Obvious deformity of the left lower extremity. Pain with gentle ROM NV intact LLE Plan: Risks, benefits, alternatives to surgical intervention were discussed with patient, patients son (POA) and daughter. Appropriate clearances were maintained. Informed consent was signed and patient will be taken to the OR at its earliest availability. 03/01/17 22:17 Objective: Vital Signs Temp Pulse Resp BP Pulse Ox 36.6 C 56 L 18 135/60 H 97 03/01/17 20:43 03/01/17 20:43 03/01/17 20:43 03/01/17 20:43 03/01/17 20:43 ICD10 Worksheet Patient Problems: Problems Problem Status Onset Closed left subtrochanteric femur fracture Acute Hypoglycemia Acute Renal insufficiency Acute
--- NOTE | 2017-03-01 22:19 | SOAPPROG ---
VAL Progress Note Assessment/Plan: Assessment:Terese is a pleasant 86 year old female who presents to the office today with left hip pain after a fall earlier today. She was taken to [facility] ER and was found to have a left intertrochanteric femur fracture. PE: Obvious deformity of the left lower extremity. Pain with gentle ROM NV intact LLE Plan: Risks, benefits, alternatives to surgical intervention were discussed with patient, patients son (POA) and daughter. Appropriate clearances were maintained. Informed consent was signed and patient will be taken to the OR at its earliest availability. 03/01/17 22:17 Objective: Vital Signs Temp Pulse Resp BP Pulse Ox 36.6 C 56 L 18 135/60 H 97 03/01/17 20:43 03/01/17 20:43 03/01/17 20:43 03/01/17 20:43 03/01/17 20:43 ICD10 Worksheet Patient Problems: Problems Problem Status Onset Closed left subtrochanteric femur fracture Acute Hypoglycemia Acute Renal insufficiency Acute
--- NOTE | 2017-03-01 22:19 | SOAPPROG ---
VAL Progress Note Assessment/Plan: Assessment:Terese is a pleasant 86 year old female who presents to the office today with left hip pain after a fall earlier today. She was taken to [facility] ER and was found to have a left intertrochanteric femur fracture. PE: Obvious deformity of the left lower extremity. Pain with gentle ROM NV intact LLE Plan: Risks, benefits, alternatives to surgical intervention were discussed with patient, patients son (POA) and daughter. Appropriate clearances were maintained. Informed consent was signed and patient will be taken to the OR at its earliest availability. 03/01/17 22:17 Objective: Vital Signs Temp Pulse Resp BP Pulse Ox 36.6 C 56 L 18 135/60 H 97 03/01/17 20:43 03/01/17 20:43 03/01/17 20:43 03/01/17 20:43 03/01/17 20:43 ICD10 Worksheet Patient Problems: Problems Problem Status Onset Closed left subtrochanteric femur fracture Acute Hypoglycemia Acute Renal insufficiency Acute
--- NOTE | 2017-03-01 22:31 | SOAPPROG ---
SOAP Progress Note Assessment/Plan: Assessment:Terese is a pleasant 86 year old female now POD#0 from left hip TFN. PE: Operative dressing in place NV intact LLE Plan: 1. Operative dressing in place. Reinforce dressing if needed 2. WBAT LLE 3. PT/OT 4. Follow up with Dr. Avila in 2 weeks for repeat evaluation, repeat radiographs, and staple removal 03/01/17 22:17 03/01/17 22:24 Objective: Vital Signs Temp Pulse Resp BP Pulse Ox 36.6 C 56 L 18 135/60 H 97 03/01/17 20:43 03/01/17 20:43 03/01/17 20:43 03/01/17 20:43 03/01/17 20:43 ICD10 Worksheet Patient Problems: Problems Problem Status Onset Closed left subtrochanteric femur fracture Acute Hypoglycemia Acute Renal insufficiency Acute
[2017-03-01] MEDS ORDERED: ceFAZolin 1 GM VIAL ONE (22:38)
[2017-03-01] MEDS ORDERED: SUGAMMADEX SODIUM 200 MG/2 ML VIAL IVP ONE (22:50)
[2017-03-01] MEDS ORDERED: ONDANSETRON 4 MG/2 ML VIAL ONE (22:50)
[2017-03-01] MEDS ORDERED: DEXAMETHASONE 4 MG/ML VIAL ONE (22:50)
--- NOTE | 2017-03-01 23:03 | PDANEPAE ---
ANE History of Present Illness Patient presents for Left Hip TFN ANE Past Medical History - Cardiovascular History Hx Hypertension: Yes - Pulmonary History Hx Oxygen in Use at Home: No Hx Sleep Apnea: No - Endocrine History Hx Diabetes: Yes - Renal History Hx Renal Disorders: Yes Renal History Comment: Chronic renal failure ANE Review of Systems Review of Systems: ANE Patient History - Allergies Allergies/Adverse Reactions: Sulfa (Sulfonamide Antibiotics) Allergy (Unknown, Verified 03/01/17 17:19) - Home Medications Home medications: home medication list seen and reviewed Home Medications: Acetaminophen [Tylenol ES 500 mg (*)] 1,000 mg PO Q8H PRN 09/10/16 [Last Taken Unknown] Aspirin EC [Aspirin EC 81 mg (*)] 81 mg PO DAILY@09/10/16 [Last Taken ] Atorvastatin Calcium [Lipitor 20 mg (*)] 20 mg PO DAILY@09/10/16 [Last Taken 09/10/16] Bisacodyl [Dulcolax] 10 mg RC Q24H PRN 09/10/16 [Last Taken Unknown] Donepezil HCl 10 mg PO DAILY@09/10/16 [Last Taken 09/10/16] Ergocalciferol [Vitamin D2 (*)] 50,000 unit PO Q14D@09/10/16 [Last Taken 07/22] Escitalopram Oxalate [Lexapro 10 MG] 10 mg PO DAILY@09/10/16 [Last Taken 10/22] Furosemide [Lasix 20 MG (*)] 20 mg PO DAILY@09/10/16 [Last Taken 09/10/16] Losartan Potassium [Cozaar 25 mg (*)] 25 mg PO DAILY@09/10/16 [Last Taken 10/22] Mag Hydrox/Al Hydrox/Simeth [Maalox Maximum Strength Suspension] 30 ml PO Q8H PRN 09/10/16 [Last Taken Unknown] Memantine HCl [Namenda Xr] 28 mg PO DAILY@09/10/16 [Last Taken 09/10/16] Sennosides/Docusate Sodium [Senna-Docusate Sodium Tablet] 1 each PO BID@, [Last Taken 09/10/16] Solifenacin Succinate [Vesicare] 10 mg PO DAILY@19 09/10/16 [Last Taken 09/10/16 ] - Smoking Hx Smoking Status: Never smoked ANE Labs/Vital Signs - Labs Result Diagrams: 03/01/17 17:10 03/01/17 17:10 - Vital Signs Blood Pressure: 135/60 Heart Rate: 56 Respiratory Rate: 18 O2 Sat (%): 97 ANE Physical Exam - Airway Neck exam: decreased ROM Mallampati Score: Unable to assesss - Pulmonary Pulmonary: no respiratory distress - Cardiovascular Cardiovascular: pulses symmetric bilaterally - ASA Status ASA Status: III, E
[2017-03-01] MEDS ORDERED: ACETAMINOPHEN 500 MG TAB PO PRN (23:25)
[2017-03-01] MEDS ORDERED: NALOXONE HCL 0.4 MG/ML INJ IVP PRN (23:25)
[2017-03-01] MEDS ORDERED: LR 500 ML IV PRN (23:25)
[2017-03-01] MEDS ORDERED: fentaNYL 100 MCG/2 ML INJ IVP PRN (23:25)
--- NOTE | 2017-03-01 23:39 | POSTOPPROG ---
Post Op Note Date of Operation: 03/01/17 Surgeon: Cliff Avila Lifestyle Consultant: Radha Rodas PA-C Anesthesia: GET(General Endotracheal) Pre-op Diagnosis: left hip intertrochanteric fracture Post-op Diagnosis: left hip intertrochanteric fracture Procedure: left hip TFN Inf/Abcess present in the surg proc area at time of surgery?: No Depth: Deep Incisional (Fascial) EBL: 50-100
--- NOTE | 2017-03-01 23:55 | POSTANESTH ---
Post Anesthetic Evaluation Cardiovascular Status: Normal, Stable, Similar to Pre-Op Cond Respiratory Status: Similar to Pre-op Cond. Level of Consciousness/Mental Status: Other, See Comment Pain Control: Adequate, Prn Tx Ordered Nausea/Vomiting Control: Adequate, Prn Tx Ordered Complications Possibly Related to Anesthesia: None Noted (mental status as per pre-op. Baseline dementia and deafness. Appears comfortable)
[2017-03-02] MEDS ORDERED: ALBUTEROL 3 ML DEYVIAL ONE (00:03)
[2017-03-02] MEDS ORDERED: ALBUTEROL 3 ML DEYVIAL IH ONE (00:05)
[2017-03-02] MEDS ORDERED: D10W 250 ML PRN HYPOGLYCEMIA IV (00:30)
[2017-03-02] MEDS: NS 1,000 ML IV SCH ×2 (02:29→06:36)
[2017-03-02] MEDS ORDERED: NS 500 ML IV ONE (02:56)
--- NOTE | 2017-03-02 04:15 | GCON ---
[f rep st] CONSULTATION Patient Name: ALEX ORTIZ N-Number: [id number] Date of : 1930 Patient Status: Inpatient Attending Doctor: Pili Worrell MD Consulting Doctor: Cliff Avila MD Date of service: 03/01/17 CPT codes: CPT code 15703 ER visit requiring admission or initial inpatient visit, level three Modifier 57 decision for surgery CHIEF COMPLAINT: Left hip pain HISTORY OF PRESENT ILLNESS: This is a very pleasant 86 year old female with a significant history for left hip pain after a fall at her assisted living facility earlier today (03/01/17). She was brought to the [facility] ED because she was unable to bear weight on her left lower extremity and she was found to have a left IT and ST femur fracture. PROBLEM LIST: Left IT and ST femur fracture PAST MEDICAL HISTORY: DM Type II, Dementia, Chronic kidney disease, HTN SURGERIES: None SOCIAL HISTORY: She currently lives at [facility] FAMILY HISTORY: Non-contributory CURRENT MEDICATIONS: Tylenol, Aspirin, Atorvastatin, Bisacodyl, Donepezil, Vitamin D2, Lexapro, Furosemide, Cozaar, Maalox, Nemenda, Senna-docusate sodium, Vesicare, Insulin ALLERGIES: Sulfa REVIEW OF SYSTEMS Constitutional: No unexpected weight loss, weight gain, fevers, chills, or fatigue. Eyes: No blurred or double vision, no eye pain, redness or swelling. ENT: No headaches, difficulty swallowing, nose bleeds, tinnitus, or earaches. Cardiovascular: No chest pain, palpitations, fainting or murmurs. Respiratory: No shortness of breath, wheezing, cough, of difficulty breathing. GI: No reflux, no nausea or vomiting, no constipation, diarrhea, or bloody stools. Genitourinary: No urinary frequency or urgency, no pain with urination. Skin: No skin changes, rashes, itching, or redness. Neurologic: No unsteadiness of gait, no dizziness, tremors, or seizures. Psychiatric: No nervousness, anxiety, depression, or hallucinations. Hematologic: No increased bleeding or easy bruising. Endocrine: No excessive thirst or urination and no heat or cold intolerances. Allergic: No reactions to food or environment. Musculoskeletal: See history of present illness. PHYSICAL EXAM General: No apparent distress. Orientation: Non-verbal Mood and affect: Calm, appropriate. Gait and station: JUSTIN Skin: Warm, dry. Lymph: Non tender neck, axillary and inguinal nodes. Chest: Equal expansion, no pain with deep breaths, speaks in coherent sentences. Cardiovascular: Regular pulse. Abdomen: Soft, non-tender, no masses, no palpable hernias. Bilateral hip examination Inspection/palpation: Right: Soft, non-tender. Left: TTP, pain with gentle ROM Range of motion Flexion: 100 / JUSTIN / 100 Extension: 30 / JUSTIN / 30 Abduction: 40 / JUSTIN / 40 Adduction: 20 / JUSTIN / 20 Strength (R / L / Normal) Muscle(s) Quadriceps (L3-L4): 5 / 3 / 5 Hamstrings (L4-L5): 5 / 3 / 5 Tibialis anterior (L4): 5 / 3 / 5 EHL (L5): 5 / 3 / 5 FHL (S1): 5 / 3 / 5 Gastroc-soleus (S1): 5 / 3 / 5 Sensory (R / L / Normal) Dermatomes L1 (groin): + / + / + L2 (medial upper thigh): + / + / + L3 (anterior thigh): + / + / + L4 (medial ankle): + / + / + L5 (first dorsal web space): + / + / + S1 (lateral border of foot): + / + / + Peripheral nerves Superficial peroneal: + / + / + Deep peroneal: + / + / + Sural: + / + / + Tibial: + / + / + Saphenous: + / + / + Vascular exam (R / L / Normal) Dorsalis pedis: 2+ / 2+ / 2+ Tibialis posterior: 2+ / 2+ / 2+ Medical decision making Data Imaging study: left hip radiographs, three views Action: interpreted Interpretation / pertinent findings: left IT and ST femur fracture Diagnoses New diagnosis: left IT and ST femur fracture Work-up planned: yes: see assessment and plan Assessment and plan This is a very pleasant 86 year old female with left hip IT and ST femur fracture after a fall from standing earlier today (03/01/17) -As such I have discussed with the patient and her power of threat analyst (son) the risks, benefits, alternatives, and complications associated with both non- operative (specifically, observation) and operative (specifically, left hip open reduction and internal fixation) forms of treatment -The patients power of threat analyst fully understands the risks, benefits, alternatives, and complications of both forms of treatment and the he wishes to proceed with surgical intervention -The patients power of threat analyst provided his verbal informed consent for the procedure over the telephone in the presence of a witness -Appropriate pre-operative medical clearance was obtained and patient will be taken to the operative room at its earliest availability Time I have spent 80 minutes of [id number] time with the patient during this visit. Over fifty percent of this time was spent counseling the patient on the risks, benefits, alternatives, and complications of both non-operative and operative forms of treatment as outlined above. /[id number]/MODL MTDD
--- NOTE | 2017-03-02 04:15 | GCON ---
[f rep st] CONSULTATION Patient Name: ALEX ORTIZ N-Number: [id number] Date of : 1930 Patient Status: Inpatient Attending Doctor: Pili Worrell MD Consulting Doctor: Cliff Avila MD Date of service: 03/01/17 CPT codes: CPT code 23597 ER visit requiring admission or initial inpatient visit, level three Modifier 57 decision for surgery CHIEF COMPLAINT: Left hip pain HISTORY OF PRESENT ILLNESS: This is a very pleasant 86 year old female with a significant history for left hip pain after a fall at her assisted living facility earlier today (03/01/17). She was brought to the [facility] ED because she was unable to bear weight on her left lower extremity and she was found to have a left IT and ST femur fracture. PROBLEM LIST: Left IT and ST femur fracture PAST MEDICAL HISTORY: DM Type II, Dementia, Chronic kidney disease, HTN SURGERIES: None SOCIAL HISTORY: She currently lives at [facility] FAMILY HISTORY: Non-contributory CURRENT MEDICATIONS: Tylenol, Aspirin, Atorvastatin, Bisacodyl, Donepezil, Vitamin D2, Lexapro, Furosemide, Cozaar, Maalox, Nemenda, Senna-docusate sodium, Vesicare, Insulin ALLERGIES: Sulfa REVIEW OF SYSTEMS Constitutional: No unexpected weight loss, weight gain, fevers, chills, or fatigue. Eyes: No blurred or double vision, no eye pain, redness or swelling. ENT: No headaches, difficulty swallowing, nose bleeds, tinnitus, or earaches. Cardiovascular: No chest pain, palpitations, fainting or murmurs. Respiratory: No shortness of breath, wheezing, cough, of difficulty breathing. GI: No reflux, no nausea or vomiting, no constipation, diarrhea, or bloody stools. Genitourinary: No urinary frequency or urgency, no pain with urination. Skin: No skin changes, rashes, itching, or redness. Neurologic: No unsteadiness of gait, no dizziness, tremors, or seizures. Psychiatric: No nervousness, anxiety, depression, or hallucinations. Hematologic: No increased bleeding or easy bruising. Endocrine: No excessive thirst or urination and no heat or cold intolerances. Allergic: No reactions to food or environment. Musculoskeletal: See history of present illness. PHYSICAL EXAM General: No apparent distress. Orientation: Non-verbal Mood and affect: Calm, appropriate. Gait and station: JUSTIN Skin: Warm, dry. Lymph: Non tender neck, axillary and inguinal nodes. Chest: Equal expansion, no pain with deep breaths, speaks in coherent sentences. Cardiovascular: Regular pulse. Abdomen: Soft, non-tender, no masses, no palpable hernias. Bilateral hip examination Inspection/palpation: Right: Soft, non-tender. Left: TTP, pain with gentle ROM Range of motion Flexion: 100 / JUSTIN / 100 Extension: 30 / JUSTIN / 30 Abduction: 40 / JUSTIN / 40 Adduction: 20 / JUSTIN / 20 Strength (R / L / Normal) Muscle(s) Quadriceps (L3-L4): 5 / 3 / 5 Hamstrings (L4-L5): 5 / 3 / 5 Tibialis anterior (L4): 5 / 3 / 5 EHL (L5): 5 / 3 / 5 FHL (S1): 5 / 3 / 5 Gastroc-soleus (S1): 5 / 3 / 5 Sensory (R / L / Normal) Dermatomes L1 (groin): + / + / + L2 (medial upper thigh): + / + / + L3 (anterior thigh): + / + / + L4 (medial ankle): + / + / + L5 (first dorsal web space): + / + / + S1 (lateral border of foot): + / + / + Peripheral nerves Superficial peroneal: + / + / + Deep peroneal: + / + / + Sural: + / + / + Tibial: + / + / + Saphenous: + / + / + Vascular exam (R / L / Normal) Dorsalis pedis: 2+ / 2+ / 2+ Tibialis posterior: 2+ / 2+ / 2+ Medical decision making Data Imaging study: left hip radiographs, three views Action: interpreted Interpretation / pertinent findings: left IT and ST femur fracture Diagnoses New diagnosis: left IT and ST femur fracture Work-up planned: yes: see assessment and plan Assessment and plan This is a very pleasant 86 year old female with left hip IT and ST femur fracture after a fall from standing earlier today (03/01/17) -As such I have discussed with the patient and her power of flagman (son) the risks, benefits, alternatives, and complications associated with both non- operative (specifically, observation) and operative (specifically, left hip open reduction and internal fixation) forms of treatment -The patients power of flagman fully understands the risks, benefits, alternatives, and complications of both forms of treatment and the he wishes to proceed with surgical intervention -The patients power of flagman provided his verbal informed consent for the procedure over the telephone in the presence of a witness -Appropriate pre-operative medical clearance was obtained and patient will be taken to the operative room at its earliest availability Time I have spent 80 minutes of fceu-[id number]-[id number] time with the patient during this visit. Over fifty percent of this time was spent counseling the patient on the risks, benefits, alternatives, and complications of both non-operative and operative forms of treatment as outlined above. /[id number]/MODL MTDD
--- NOTE | 2017-03-02 04:15 | GCON ---
[f rep st] CONSULTATION Patient Name: ALEX ORTIZ N-Number: [id number] Date of : 1930 Patient Status: Inpatient Attending Doctor: Pili Worrell MD Consulting Doctor: Cliff Avila MD Date of service: 03/01/17 CPT codes: CPT code 49503 ER visit requiring admission or initial inpatient visit, level three Modifier 57 decision for surgery CHIEF COMPLAINT: Left hip pain HISTORY OF PRESENT ILLNESS: This is a very pleasant 86 year old female with a significant history for left hip pain after a fall at her assisted living facility earlier today (03/01/17). She was brought to the [facility] ED because she was unable to bear weight on her left lower extremity and she was found to have a left IT and ST femur fracture. PROBLEM LIST: Left IT and ST femur fracture PAST MEDICAL HISTORY: DM Type II, Dementia, Chronic kidney disease, HTN SURGERIES: None SOCIAL HISTORY: She currently lives at [facility] FAMILY HISTORY: Non-contributory CURRENT MEDICATIONS: Tylenol, Aspirin, Atorvastatin, Bisacodyl, Donepezil, Vitamin D2, Lexapro, Furosemide, Cozaar, Maalox, Nemenda, Senna-docusate sodium, Vesicare, Insulin ALLERGIES: Sulfa REVIEW OF SYSTEMS Constitutional: No unexpected weight loss, weight gain, fevers, chills, or fatigue. Eyes: No blurred or double vision, no eye pain, redness or swelling. ENT: No headaches, difficulty swallowing, nose bleeds, tinnitus, or earaches. Cardiovascular: No chest pain, palpitations, fainting or murmurs. Respiratory: No shortness of breath, wheezing, cough, of difficulty breathing. GI: No reflux, no nausea or vomiting, no constipation, diarrhea, or bloody stools. Genitourinary: No urinary frequency or urgency, no pain with urination. Skin: No skin changes, rashes, itching, or redness. Neurologic: No unsteadiness of gait, no dizziness, tremors, or seizures. Psychiatric: No nervousness, anxiety, depression, or hallucinations. Hematologic: No increased bleeding or easy bruising. Endocrine: No excessive thirst or urination and no heat or cold intolerances. Allergic: No reactions to food or environment. Musculoskeletal: See history of present illness. PHYSICAL EXAM General: No apparent distress. Orientation: Non-verbal Mood and affect: Calm, appropriate. Gait and station: JUSTIN Skin: Warm, dry. Lymph: Non tender neck, axillary and inguinal nodes. Chest: Equal expansion, no pain with deep breaths, speaks in coherent sentences. Cardiovascular: Regular pulse. Abdomen: Soft, non-tender, no masses, no palpable hernias. Bilateral hip examination Inspection/palpation: Right: Soft, non-tender. Left: TTP, pain with gentle ROM Range of motion Flexion: 100 / JUSTIN / 100 Extension: 30 / JUSTIN / 30 Abduction: 40 / JUSTIN / 40 Adduction: 20 / JUSTIN / 20 Strength (R / L / Normal) Muscle(s) Quadriceps (L3-L4): 5 / 3 / 5 Hamstrings (L4-L5): 5 / 3 / 5 Tibialis anterior (L4): 5 / 3 / 5 EHL (L5): 5 / 3 / 5 FHL (S1): 5 / 3 / 5 Gastroc-soleus (S1): 5 / 3 / 5 Sensory (R / L / Normal) Dermatomes L1 (groin): + / + / + L2 (medial upper thigh): + / + / + L3 (anterior thigh): + / + / + L4 (medial ankle): + / + / + L5 (first dorsal web space): + / + / + S1 (lateral border of foot): + / + / + Peripheral nerves Superficial peroneal: + / + / + Deep peroneal: + / + / + Sural: + / + / + Tibial: + / + / + Saphenous: + / + / + Vascular exam (R / L / Normal) Dorsalis pedis: 2+ / 2+ / 2+ Tibialis posterior: 2+ / 2+ / 2+ Medical decision making Data Imaging study: left hip radiographs, three views Action: interpreted Interpretation / pertinent findings: left IT and ST femur fracture Diagnoses New diagnosis: left IT and ST femur fracture Work-up planned: yes: see assessment and plan Assessment and plan This is a very pleasant 86 year old female with left hip IT and ST femur fracture after a fall from standing earlier today (03/01/17) -As such I have discussed with the patient and her power of trial attorney (son) the risks, benefits, alternatives, and complications associated with both non- operative (specifically, observation) and operative (specifically, left hip open reduction and internal fixation) forms of treatment -The patients power of trial attorney fully understands the risks, benefits, alternatives, and complications of both forms of treatment and the he wishes to proceed with surgical intervention -The patients power of trial attorney provided his verbal informed consent for the procedure over the telephone in the presence of a witness -Appropriate pre-operative medical clearance was obtained and patient will be taken to the operative room at its earliest availability Time I have spent 80 minutes of [id number] time with the patient during this visit. Over fifty percent of this time was spent counseling the patient on the risks, benefits, alternatives, and complications of both non-operative and operative forms of treatment as outlined above. /[id number]/MODL MTDD
[2017-03-02 05:28] LABS: PLATELET COUNT 174 10^3/uL (150-400)
--- NOTE | 2017-03-02 05:30 | GOP ---
[f rep st] OPERATIVE REPORT PATIENT: ALEX ORTIZ DATE OF SERVICE: 03/01/17 PATIENT DATE OF : 1930 SURGEON: Cliff Avila M.D. FIRE INFORMATION OFFICER: Radha Rodas PA-C Mrs. Fisher assistance was medically necessary for patient positioning and the retraction of vital structures. ANESTHESIA: General PRE-OPERATIVE DIAGNOSES: Left femur intertrochanteric fracture (ICD-10 code S72.143A Intertrochanteric femur fracture) Left femur subtrochanteric fracture (ICD-10 code S72.23A Subtrochanteric femur fracture) POST-OPERATIVE DIAGNOSES: Left femur intertrochanteric fracture (ICD-10 code S72.143A Intertrochanteric femur fracture) Left femur subtrochanteric fracture (ICD-10 code S72.23A Subtrochanteric femur fracture) OPERATIVE PROCEDURES: CPT code 25288 Treatment of an intertrochanteric femur fracture with an intramedullary implant EBL: 2cc COMPLICATIONS: None IMPLANTS: Synthes trochanteric fixation nail, 130 degree angle, 10 mm in diameter by 360 mm long with a 95 mm helical blade and a 54 mm distal interlocking bolt BRIEF CLINICAL NOTE: This is a very pleasant 86 year old female with a significant history for a left intertrochanteric and subtrochanteric femur fracture. As such, I have discussed the risks, benefits, alternatives, and complications associated with both non-operative (specifically, observation) and operative (specifically, left proximal femur reduction and internal fixation ) forms of treatment with the patient and the patients power of regulatory attorney. The patient and the patients power of regulatory attorney fully understand the risks, benefits , alternatives, and complications associated with both forms of treatment and they wished to proceed with operative intervention as outlined above. The patients power of regulatory attorney provided his verbal informed consent for the surgery in the presence of a witness. OPERATIVE NOTE: On the day of surgery, all of the patients questions were answered. The patient was then transferred from the pre-operative area into the operating room and a formal, Time-Out procedure was performed. The patient was identified by name, medical record number, social security number, and date of . In addition, the patients left lower extremity was identified as the correct portion of the patients body for surgery with the patients left femur being identified as the correct portion of that extremity for surgery. The anesthesia team administered pre-operative antibiotics for prophylaxis. The patient was then moved onto the fracture table and the left lower extremity was placed in traction. The left lower extremity was then prepped and draped in the normal sterile fashion. A sterile marking pen was then utilized to alicia out the tip of the greater trochanter and 2-3 cm incision several centimeters proximal to the tip of the greater trochanter. A number 15 blade was then used to incise the skin and meticulous hemostasis was obtained in the subcutaneous plane. The abductor fascia was then split longitudinally to provide access to the tip of the greater trochanter. The starting guidewire was then advanced through the wound onto the tip of the greater trochanter. The guidewire was then advanced into the proximal femur. Appropriate guidewire positioning was then confirmed on both PA and lateral C-arm images. Next, the starting reamer was then advanced over the guidewire to create an entry point into the proximal femur. Following this, the guidewire and the starting reamer were then removed and a ball-tipped guidewire was advanced into the proximal femoral canal and down to the level of the distal femoral metaphysis. The guidewires position was confirmed on both PA and lateral C-arm images at the knee, the femoral shaft, and the proximal femur. The guidewire was then measured at a length of 360 mm. Next, the femur was reamed over the guidewire starting with an 8.5 mm reamer and increasing in 0.5mm increments up to an 11.5 mm reamer. The last reamer provided for an excellent fit at the level of the isthmus. As such, a 10 mm diameter by 360 mm long 130 degree angle trochanteric fixation nail was then opened and attached to the impaction device. The trochanteric fixation nail was then advanced over the ball-tipped guidewire under fluoroscopic control. Next, the outrigger aiming arm was attached to the impaction device and a separate incision was made to allow for insertion of the helical blade. The aiming guide for the helical blade was then advanced through this separate incision and brought into direct contact with the lateral femoral cortex. The guidewire was then advanced through the aiming arm into the proximal femur extending into the lower portion of the femoral neck and head. Appropriate guidewire positioning was then confirmed on both PA and lateral C-arm fluoroscopy. Next, the large drill was utilized to open the lateral femoral cortex. The guidewire was then measured at a length of 95 mm and the stepped reamer was then set for this length. The guidewire was then over drilled with the stepped reamer. Following this, a 95 mm helical blade was then selected and opened and attached to the impaction device. The helical blade was then inserted over the guidewire. Its positioning was confirmed on both PA and lateral C-arm fluoroscopy. Next, the aiming guide for the helical blade was then utilized to compress across at the site of the fracture and then the helical blade was locked into place through the proximal end of the nail. Following this, one distal interlocking bolt was then inserted through a static hole at the distal end of the nail. Final PA and lateral C-arm fluoroscopic images were then obtained at the level of the hip, the femoral shaft, and the knee. All images demonstrated anatomic reduction at the site of the fracture as well as appropriate implant positioning and length in all views. These images were printed and saved. Next, all incisions were copiously irrigated with sterile normal saline. The fascia was re-approximated with 2-0 vicryl sutures and the skin was re- approximated with surgical tylor. The skin was then cleaned with sterile normal saline and dried. Xeroform gauze dressings were then applied followed by a dry sterile dressing. The patient was then reversed from anesthesia and transferred from the operating room table onto the post-operative gurney and transferred from the operating room to the PACU in stable condition. POST-OPERATIVE PLAN: The current dressings will be left in place for the next 2 days. The patient may WBAT on the left lower extremity. /[id number]/MODL MTDD
--- NOTE | 2017-03-02 05:30 | GOP ---
[f rep st] OPERATIVE REPORT PATIENT: ALEX ORTIZ DATE OF SERVICE: 03/01/17 PATIENT DATE OF : 1930 SURGEON: Cliff Avila M.D. COMPLIANCE AUDITOR: Radha Rodas PA-C Mrs. Fisher assistance was medically necessary for patient positioning and the retraction of vital structures. ANESTHESIA: General PRE-OPERATIVE DIAGNOSES: Left femur intertrochanteric fracture (ICD-10 code S72.143A Intertrochanteric femur fracture) Left femur subtrochanteric fracture (ICD-10 code S72.23A Subtrochanteric femur fracture) POST-OPERATIVE DIAGNOSES: Left femur intertrochanteric fracture (ICD-10 code S72.143A Intertrochanteric femur fracture) Left femur subtrochanteric fracture (ICD-10 code S72.23A Subtrochanteric femur fracture) OPERATIVE PROCEDURES: CPT code 82982 Treatment of an intertrochanteric femur fracture with an intramedullary implant EBL: 2cc COMPLICATIONS: None IMPLANTS: Synthes trochanteric fixation nail, 130 degree angle, 10 mm in diameter by 360 mm long with a 95 mm helical blade and a 54 mm distal interlocking bolt BRIEF CLINICAL NOTE: This is a very pleasant 86 year old female with a significant history for a left intertrochanteric and subtrochanteric femur fracture. As such, I have discussed the risks, benefits, alternatives, and complications associated with both non-operative (specifically, observation) and operative (specifically, left proximal femur reduction and internal fixation ) forms of treatment with the patient and the patients power of railroad operator. The patient and the patients power of railroad operator fully understand the risks, benefits , alternatives, and complications associated with both forms of treatment and they wished to proceed with operative intervention as outlined above. The patients power of railroad operator provided his verbal informed consent for the surgery in the presence of a witness. OPERATIVE NOTE: On the day of surgery, all of the patients questions were answered. The patient was then transferred from the pre-operative area into the operating room and a formal, Time-Out procedure was performed. The patient was identified by name, medical record number, social security number, and date of . In addition, the patients left lower extremity was identified as the correct portion of the patients body for surgery with the patients left femur being identified as the correct portion of that extremity for surgery. The anesthesia team administered pre-operative antibiotics for prophylaxis. The patient was then moved onto the fracture table and the left lower extremity was placed in traction. The left lower extremity was then prepped and draped in the normal sterile fashion. A sterile marking pen was then utilized to alicia out the tip of the greater trochanter and 2-3 cm incision several centimeters proximal to the tip of the greater trochanter. A number 15 blade was then used to incise the skin and meticulous hemostasis was obtained in the subcutaneous plane. The abductor fascia was then split longitudinally to provide access to the tip of the greater trochanter. The starting guidewire was then advanced through the wound onto the tip of the greater trochanter. The guidewire was then advanced into the proximal femur. Appropriate guidewire positioning was then confirmed on both PA and lateral C-arm images. Next, the starting reamer was then advanced over the guidewire to create an entry point into the proximal femur. Following this, the guidewire and the starting reamer were then removed and a ball-tipped guidewire was advanced into the proximal femoral canal and down to the level of the distal femoral metaphysis. The guidewires position was confirmed on both PA and lateral C-arm images at the knee, the femoral shaft, and the proximal femur. The guidewire was then measured at a length of 360 mm. Next, the femur was reamed over the guidewire starting with an 8.5 mm reamer and increasing in 0.5mm increments up to an 11.5 mm reamer. The last reamer provided for an excellent fit at the level of the isthmus. As such, a 10 mm diameter by 360 mm long 130 degree angle trochanteric fixation nail was then opened and attached to the impaction device. The trochanteric fixation nail was then advanced over the ball-tipped guidewire under fluoroscopic control. Next, the outrigger aiming arm was attached to the impaction device and a separate incision was made to allow for insertion of the helical blade. The aiming guide for the helical blade was then advanced through this separate incision and brought into direct contact with the lateral femoral cortex. The guidewire was then advanced through the aiming arm into the proximal femur extending into the lower portion of the femoral neck and head. Appropriate guidewire positioning was then confirmed on both PA and lateral C-arm fluoroscopy. Next, the large drill was utilized to open the lateral femoral cortex. The guidewire was then measured at a length of 95 mm and the stepped reamer was then set for this length. The guidewire was then over drilled with the stepped reamer. Following this, a 95 mm helical blade was then selected and opened and attached to the impaction device. The helical blade was then inserted over the guidewire. Its positioning was confirmed on both PA and lateral C-arm fluoroscopy. Next, the aiming guide for the helical blade was then utilized to compress across at the site of the fracture and then the helical blade was locked into place through the proximal end of the nail. Following this, one distal interlocking bolt was then inserted through a static hole at the distal end of the nail. Final PA and lateral C-arm fluoroscopic images were then obtained at the level of the hip, the femoral shaft, and the knee. All images demonstrated anatomic reduction at the site of the fracture as well as appropriate implant positioning and length in all views. These images were printed and saved. Next, all incisions were copiously irrigated with sterile normal saline. The fascia was re-approximated with 2-0 vicryl sutures and the skin was re- approximated with surgical tylor. The skin was then cleaned with sterile normal saline and dried. Xeroform gauze dressings were then applied followed by a dry sterile dressing. The patient was then reversed from anesthesia and transferred from the operating room table onto the post-operative gurney and transferred from the operating room to the PACU in stable condition. POST-OPERATIVE PLAN: The current dressings will be left in place for the next 2 days. The patient may WBAT on the left lower extremity. /[id number]/MODL MTDD
[2017-03-02] MEDS: INSULIN REGULAR HUMAN 100 UNIT/ML SC SCH ×4 (08:09→22:36)
--- NOTE | 2017-03-02 08:57 | HOSPPROG ---
Hospitalist Progress Note Assessment/Plan: Patient is an 86-year-old female who fell and landed on her left hip. In route she had a low heart rate of 28 but did not have any symptoms. Today is my 1st encounter with the patient. Chart reviewed. * left hip fracture Status post left femur ORIF with Dr. Avila * gait instability resulting in a fall * acute renal failure Holding Arb and diuretic Avoid nephrotoxic medications * significant leukocytosis Suspect this is from a urinary source * diabetes type 2 Resumed her long-acting, will continue sliding scale Glucoses are very elevated this morning * UTI Patient has significant dementia and is unable to tell me if she has any symptoms Will go ahead and start treatment with ceftriaxone Awaiting for culture * anemia Will follow * hypertension Blood pressure is somewhat low at this time will hold blood pressure medications * dementia Her son is at the bedside and said she is at her baseline * reviewed her code status with the son who is her medical power of senior trial attorney She is a do not resuscitate * severely hard of hearing Patient does not wear hearing aids * DVT prophylaxis Heparin subcu three times daily Subjective: Doors has no complaints Objective: Vital Signs Temp Pulse Resp BP Pulse Ox 38.6 C H 66 11 L 108/52 L 93 03/02/17 07:32 03/02/17 07:32 03/02/17 07:32 03/02/17 07:32 03/02/17 07:32 Laboratory Results 03/02/17 04:25 03/02/17 08:05 03/01/17 03/02/17 03/03/17 05:59 05:59 05:59 Intake Total 3425 Output Total 370 Balance 3055 - Physical Exam Constitutional: appears nourished, not in pain, chronically ill appearing Eyes: PERRL Ears, Nose, Mouth, Throat: hard of hearing Cardiovascular: regular rate and rhythym Respiratory: no respiratory distress Gastrointestinal: normoactive bowel sounds Genitourinary: mcdermott in urethra Skin: warm, No normal color (pale) Neurologic: other (alert, but difficult to know orientation due to hearing loss) Psychiatric: interacting appropriately, not anxious ICD10 Worksheet Patient Problems: Problems Problem Status Onset Closed left subtrochanteric femur fracture Acute Hypoglycemia Acute Renal insufficiency Acute
[2017-03-02] MEDS ORDERED: ENOXAPARIN 40 MG/0.4 ML SYR SC SCH ×2 (09:00→12:00)
[2017-03-02] MEDS ORDERED: LACTULOSE 20 GM/30 ML UDCUP PO PRN (15:09)
[2017-03-02] MEDS ORDERED: BISACODYL 10 MG SUPP PR PRN (15:09)
[2017-03-02] MEDS ORDERED: POLYETHYLENE GLYCOL 3350 17 GM PKT PO PRN (15:09)
[2017-03-02] MEDS: HEPARIN 5,000 UNIT/0.5 ML SYR SC SCH ×2 (15:10→22:03)
--- NOTE | 2017-03-02 16:00 | ASMTCMCOM ---
CM Note CM Note Notes: METAL SPONGE MAKING MACHINE OPERATOR clears pt, OT/PT rec SNF. Spoke w pt son Edin [phone] who requests referrals to #[facility] and #2 [facility]. Pt did not have a good experience at [facility]. CM to follow. Date Signed: 03/02/2017 04:00 PM Electronically Signed By:MALENA Sanon
--- NOTE | 2017-03-02 16:00 | ASMTCMCOM ---
CM Note CM Note Notes: AUTOMATIC CASTING MACHINE OPERATOR clears pt, OT/PT rec SNF. Spoke w pt son Edin [phone] who requests referrals to #1 [facility] and #[facility]. Pt did not have a good experience at [facility]. CM to follow. Date Signed: 03/02/2017 04:00 PM Electronically Signed By:MALENA Sanon
--- NOTE | 2017-03-02 16:00 | ASMTCMCOM ---
CM Note CM Note Notes: ELEVATOR REPAIR MECHANIC clears pt, OT/PT rec SNF. Spoke w pt son Edin [phone] who requests referrals to #1 [facility] and #[facility]. Pt did not have a good experience at [facility]. CM to follow. Date Signed: 03/02/2017 04:00 PM Electronically Signed By:MALENA Sanon
[2017-03-02] MEDS: INSULIN GLARGINE 100 UNITS/ML SYRINGE SC SCH (17:07)
[2017-03-02] MEDS: ACETAMINOPHEN 500 MG TAB PO SCH ×2 (17:07→22:03)
[2017-03-02] MEDS ORDERED: DONEPEZIL HCL 5 MG TAB PO SCH (19:00)
[2017-03-02] MEDS: SENNOSIDES/DOCUSATE SODIUM TAB PO SCH (20:30)
[2017-03-02] MEDS: ATORVASTATIN CALCIUM 20 MG TAB PO SCH (20:31)
[2017-03-02] MEDS: oxyCODONE IR 5 MG TAB PO PRN (20:31)
[2017-03-02] MEDS: DONEPEZIL 10 MG PO SCH (20:32)
[2017-03-03] MEDS ORDERED: INSULIN LISPRO 100 UNIT/ML SC ONE (02:01)
[2017-03-03] MEDS: oxyCODONE IR 5 MG TAB PO PRN ×3 (04:52→15:08)
[2017-03-03] MEDS: HEPARIN 5,000 UNIT/0.5 ML SYR SC SCH ×3 (04:54→22:05)
[2017-03-03 05:29] LABS: PLATELET COUNT 136 10^3/uL (150-400)
[2017-03-03] MEDS: INSULIN GLARGINE 100 UNITS/ML SYRINGE SC SCH ×2 (08:21→17:21)
[2017-03-03] MEDS: INSULIN REGULAR HUMAN 100 UNIT/ML SC SCH ×4 (08:22→22:10)
[2017-03-03] MEDS: ACETAMINOPHEN 500 MG TAB PO SCH ×3 (08:23→22:06)
[2017-03-03] MEDS: ESCITALOPRAM OXALATE 10 MG TAB PO SCH (08:24)
[2017-03-03] MEDS: SENNOSIDES/DOCUSATE SODIUM TAB PO SCH ×2 (08:24→22:06)
[2017-03-03] MEDS: (Memantine Hcl [Namenda Xr] 28 MG) PO SCH (08:29)
--- NOTE | 2017-03-03 13:03 | SOAPPROG ---
SOAP Progress Note Assessment/Plan: Assessment:Terese is a pleasant 86 year old female now POD#2 from left hip TFN. She is resting comfortably in bed PE: Operative dressing in place. Sanguinous drainage on the distal incision. NV intact LLE No pain with calf compression Plan: 1. Distal dressing was removed and new DSD placed. Remaining dressing was CDI. Reinforce if needed 2. WBAT LLE 3. PT/OT 4. Follow up with Dr. Avila in 2 weeks for repeat evaluation, repeat radiographs, and staple removal 03/03/17 13:01 Objective: Vital Signs Temp Pulse Resp BP Pulse Ox 36.6 C 81 17 115/48 L 96 03/03/17 11:04 03/03/17 11:04 03/03/17 11:04 03/03/17 11:04 03/03/17 11:04 Laboratory Results 03/03/17 04:27 03/03/17 04:27 03/02/17 03/03/17 03/04/17 05:59 05:59 05:59 Intake Total 3425 550 Output Total 370 Balance 3054 550 ICD10 Worksheet Patient Problems: Problems Problem Status Onset Closed left subtrochanteric femur fracture Acute Hypoglycemia Acute Renal insufficiency Acute
--- NOTE | 2017-03-03 13:03 | SOAPPROG ---
SOAP Progress Note Assessment/Plan: Assessment:Terese is a pleasant 86 year old female now POD#2 from left hip TFN. She is resting comfortably in bed PE: Operative dressing in place. Sanguinous drainage on the distal incision. NV intact LLE No pain with calf compression Plan: 1. Distal dressing was removed and new DSD placed. Remaining dressing was CDI. Reinforce if needed 2. WBAT LLE 3. PT/OT 4. Follow up with Dr. Avila in 2 weeks for repeat evaluation, repeat radiographs, and staple removal 03/03/17 13:01 Objective: Vital Signs Temp Pulse Resp BP Pulse Ox 36.6 C 81 17 115/48 L 96 03/03/17 11:04 03/03/17 11:04 03/03/17 11:04 03/03/17 11:04 03/03/17 11:04 Laboratory Results 03/03/17 04:27 03/03/17 04:27 03/02/17 03/03/17 03/04/17 05:59 05:59 05:59 Intake Total 3425 550 Output Total 370 Balance 3058 550 ICD10 Worksheet Patient Problems: Problems Problem Status Onset Closed left subtrochanteric femur fracture Acute Hypoglycemia Acute Renal insufficiency Acute
--- NOTE | 2017-03-03 13:03 | SOAPPROG ---
SOAP Progress Note Assessment/Plan: Assessment:Terese is a pleasant 86 year old female now POD#2 from left hip TFN. She is resting comfortably in bed PE: Operative dressing in place. Sanguinous drainage on the distal incision. NV intact LLE No pain with calf compression Plan: 1. Distal dressing was removed and new DSD placed. Remaining dressing was CDI. Reinforce if needed 2. WBAT LLE 3. PT/OT 4. Follow up with Dr. Avila in 2 weeks for repeat evaluation, repeat radiographs, and staple removal 03/03/17 13:01 Objective: Vital Signs Temp Pulse Resp BP Pulse Ox 36.6 C 81 17 115/48 L 96 03/03/17 11:04 03/03/17 11:04 03/03/17 11:04 03/03/17 11:04 03/03/17 11:04 Laboratory Results 03/03/17 04:27 03/03/17 04:27 03/02/17 03/03/17 03/04/17 05:59 05:59 05:59 Intake Total 3425 550 Output Total 370 Balance 3050 550 ICD10 Worksheet Patient Problems: Problems Problem Status Onset Closed left subtrochanteric femur fracture Acute Hypoglycemia Acute Renal insufficiency Acute
--- NOTE | 2017-03-03 13:53 | HOSPPROG ---
Hospitalist Progress Note Assessment/Plan: Patient is an 86-year-old female who fell and landed on her left hip. In route she had a low heart rate of 28 but did not have any symptoms. Today is my 1st encounter with the patient. Chart reviewed. D/W RN. * left hip fracture Status post left femur ORIF with Dr. Avila * gait instability resulting in a fall * acute renal failure Holding Arb and diuretic Avoid nephrotoxic medications * significant leukocytosis follow * diabetes type 2 Resumed her long-acting, will continue sliding scale Glucoses are very elevated this morning consider increasing long acting if BG not better * UTI Patient has significant dementia and is unable to tell me if she has any symptoms Will go ahead and start treatment with ceftriaxone culture with minimal growth, will dc abx * anemia blood count less today will check labs in the am no signs of bleeding no need for transfusion * hypertension Blood pressure is somewhat low at this time will hold blood pressure medications * dementia Her son is at the bedside and said she is at her baseline * reviewed her code status with the son who is her medical power of import/export freight forwarder She is a do not resuscitate * severely hard of hearing Patient does not wear hearing aids * DVT prophylaxis Heparin subcu three times daily Subjective: Up in chair. Confused. Minimal interaction. Objective: Vital Signs Temp Pulse Resp BP Pulse Ox 36.6 C 81 17 115/48 L 96 03/03/17 11:04 03/03/17 11:04 03/03/17 11:04 03/03/17 11:04 03/03/17 11:04 Laboratory Results 03/03/17 04:27 03/03/17 04:27 03/02/17 03/03/17 03/04/17 05:59 05:59 05:59 Intake Total 3425 550 480 Output Total 370 Balance 3055 550 480 - Physical Exam Constitutional: appears nourished, not in pain, chronically ill appearing Eyes: PERRL, anicteric sclera, EOMI Ears, Nose, Mouth, Throat: moist mucous membranes, ears appear normal, hard of hearing Cardiovascular: regular rate and rhythym, No JVD, No edema Respiratory: no respiratory distress, no rales or rhonchi, reduced air movement Gastrointestinal: normoactive bowel sounds, No tenderness, No ascites Skin: warm, normal color, No mottled Musculoskeletal: joint tenderness, pain with ROM, generalized weakness Neurologic: No AAOx3 Psychiatric: not anxious, poor insight, poor judgement, poor memory, No thought process linear ICD10 Worksheet Patient Problems: Problems Problem Status Onset Closed left subtrochanteric femur fracture Acute Hypoglycemia Acute Renal insufficiency Acute
--- NOTE | 2017-03-03 16:38 | ASMTCMCOM ---
CM Note CM Note Notes: [facility] is [facility] assessing pt; a couple of drugs pt is providing here are Namenda and Aricept which Isabella ([facility]) said should not be a problem. #2 SNF choice is [facility]. CM to follow. Date Signed: 03/03/2017 04:37 PM Electronically Signed By:MALENA Sanon
--- NOTE | 2017-03-03 16:38 | ASMTCMCOM ---
CM Note CM Note Notes: [facility] is still assessing pt; a couple of drugs pt is providing here are Namenda and Aricept which Isabella ([facility]) said should not be a problem. #2 SNF choice is [facility]. CM to follow. Date Signed: 03/03/2017 04:37 PM Electronically Signed By:MALENA Sanon
[2017-03-03] MEDS: DONEPEZIL 10 MG PO SCH (18:19)
[2017-03-03] MEDS: ATORVASTATIN CALCIUM 20 MG TAB PO SCH (18:19)
[2017-03-04] MEDS: oxyCODONE IR 5 MG TAB PO PRN ×3 (01:16→22:44)
[2017-03-04] MEDS: ESCITALOPRAM OXALATE 10 MG TAB PO SCH (05:54)
[2017-03-04] MEDS: HEPARIN 5,000 UNIT/0.5 ML SYR SC SCH ×3 (05:54→22:40)
[2017-03-04] MEDS: INSULIN REGULAR HUMAN 100 UNIT/ML SC SCH ×4 (07:37→22:40)
[2017-03-04] MEDS: INSULIN GLARGINE 100 UNITS/ML SYRINGE SC SCH ×2 (07:56→18:12)
[2017-03-04] MEDS: SENNOSIDES/DOCUSATE SODIUM TAB PO SCH ×3 (07:57→22:41)
[2017-03-04] MEDS: ACETAMINOPHEN 500 MG TAB PO SCH ×3 (07:57→22:41)
[2017-03-04] MEDS: (Memantine Hcl [Namenda Xr] 28 MG) PO SCH (08:50)
--- NOTE | 2017-03-04 11:55 | ASMTCMCOM ---
CM Note CM Note Notes: Spoke w/Neisha at [facility] and she confirmed that they are able to accept pt and have rec'd insurance auth. D/W pt and son, Edin ([phone]). Edin would like to be notified when pt is dc'd and also pickup time for transport. ELEANOR w/f. Date Signed: 03/04/2017 11:54 AM Electronically Signed By:Sonya Howard RN
--- NOTE | 2017-03-04 11:55 | ASMTCMCOM ---
CM Note CM Note Notes: Spoke w/Neisha at [facility] and she confirmed that they are able to accept pt and have rec'd insurance auth. D/W pt and son, Edin ([phone]). Edin would like to be notified when pt is dc'd and also pickup time for transport. ELEANOR w/f. Date Signed: 03/04/2017 11:54 AM Electronically Signed By:Sonya Howard RN
--- NOTE | 2017-03-04 11:55 | ASMTCMCOM ---
CM Note CM Note Notes: Spoke w/Neisha at [facility] and she confirmed that they are able to accept pt and have rec'd insurance auth. D/W pt and son, Edin ([phone]). Edin would like to be notified when pt is dc'd and also pickup time for transport. ELEANOR w/f. Date Signed: 03/04/2017 11:54 AM Electronically Signed By:Sonya Howard RN
[2017-03-04] MEDS ORDERED: MAG HYDROX PO PRN (13:47)
[2017-03-04] MEDS ORDERED: AL HYDROX PO PRN (13:47)
[2017-03-04] MEDS ORDERED: BISACODYL 10 MG SUPP PR PRN (13:47)
[2017-03-04] MEDS ORDERED: ACETAMINOPHEN 500 MG TAB PO PRN (13:47)
[2017-03-04] MEDS ORDERED: [UNRECOGNIZED DRUG - OTHER] PO PRN (13:47)
[2017-03-04] MEDS ORDERED: SIMETH PO PRN (13:47)
--- NOTE | 2017-03-04 13:50 | HOSPPROG ---
Hospitalist Progress Note Assessment/Plan: Patient is an 86-year-old female who fell and landed on her left hip. In route she had a low heart rate of 28 but did not have any symptoms. D/W RN and CM. * left hip fracture Status post left femur ORIF with Dr. Avila * gait instability resulting in a fall * acute renal failure Holding Arb restart lasix Avoid nephrotoxic medications * significant leukocytosis follow, better today check in am etiol? acute response * diabetes type 2 Resumed her trajendta and long-acting, will continue sliding scale Glucoses are very elevated this morning consider increasing long acting if BG not better * UTI Patient has significant dementia and is unable to tell me if she has any symptoms culture with minimal growth, will dc abx * anemia blood count less today will check labs in the am no signs of bleeding transfusion today iron started * hypertension Blood pressure is somewhat low * dementia baseline * severely hard of hearing Patient does not wear hearing aids using a voice talker * DVT prophylaxis Heparin subcu three times daily *Dispo to SNF in am if labs stable Subjective: Feeling ok. Having some pain in right hip. Objective: Vital Signs Temp Pulse Resp BP Pulse Ox 36.9 C 81 18 102/53 L 90 L 03/04/17 11:47 03/04/17 11:47 03/04/17 11:47 03/04/17 11:47 03/04/17 11:47 Laboratory Results 03/04/17 09:45 03/03/17 21:40 03/03/17 03/04/17 03/05/17 05:59 05:59 05:59 Intake Total 550 960 Output Total 3 Balance 550 957 - Physical Exam Constitutional: chronically ill appearing, uncomfortable Eyes: PERRL, anicteric sclera Ears, Nose, Mouth, Throat: ears appear normal, hard of hearing Cardiovascular: No JVD, No edema Respiratory: no respiratory distress, reduced air movement Gastrointestinal: No tenderness, No ascites Skin: warm, normal color Musculoskeletal: pain with ROM, generalized weakness Neurologic: No AAOx3 Psychiatric: not anxious, poor judgement, poor memory ICD10 Worksheet Patient Problems: Problems Problem Status Onset Hypoglycemia Acute Renal insufficiency Acute Closed left subtrochanteric femur fracture Acute
[2017-03-04] MEDS ORDERED: MAG HYDROX/AL HYDROX/SIMETH 30 ML UDCUP PO PRN (13:55)
[2017-03-04] MEDS: FERROUS SULFATE 140 MG TAB.ER PO SCH (14:27)
--- NOTE | 2017-03-04 17:39 | SOAPPROG ---
SOAP Progress Note Assessment/Plan: Assessment: HPI: 86 y/o female now POD#3 from left IT/ST femur long TFN placement on 03/01/17 PE: Gen: NAD AVSS LLE: Dressing C/D/I +Q, H, TA, EHL, FHL, G/S +SILT in DP, SP, Sural, T, Saphenous distributions 2+DP and PT pulses Assessment and plan: 86 y/o female now POD#3 from left IT/ST femur long TFN placement on 03/01/17 -WBAT on LLE with full assistance -Keep LLE wounds clean and dry -IV/PO pain control 03/04/17 17:37 Objective: Vital Signs Temp Pulse Resp BP Pulse Ox 37.0 C 76 17 110/44 L 92 03/04/17 16:25 03/04/17 16:25 03/04/17 16:25 03/04/17 16:25 03/04/17 16:25 Laboratory Results 03/04/17 09:45 03/03/17 21:40 03/03/17 03/04/17 03/05/17 05:59 05:59 05:59 Intake Total 550 960 150 Output Total 3 Balance 550 957 150 ICD10 Worksheet Patient Problems: Problems Problem Status Onset Closed left subtrochanteric femur fracture Acute Hypoglycemia Acute Renal insufficiency Acute
[2017-03-04] MEDS: ATORVASTATIN CALCIUM 20 MG TAB PO SCH (18:11)
[2017-03-04] MEDS: DONEPEZIL 10 MG PO SCH (18:40)
[2017-03-05 04:50] LABS: PLATELET COUNT 143 10^3/uL (150-400)
[2017-03-05] MEDS: oxyCODONE IR 5 MG TAB PO PRN (06:14)
[2017-03-05] MEDS: HEPARIN 5,000 UNIT/0.5 ML SYR SC SCH ×2 (06:16→13:19)
[2017-03-05] MEDS: ESCITALOPRAM OXALATE 10 MG TAB PO SCH (06:16)
[2017-03-05 07:26] VITALS: RESP 16
[2017-03-05] MEDS: INSULIN REGULAR HUMAN 100 UNIT/ML SC SCH ×2 (07:58→12:22)
[2017-03-05] MEDS ORDERED: NON-FORMULARY NEW DRUG (Linagliptin [Tradjenta] 5 MG) PO SCH (08:00)
[2017-03-05] MEDS ORDERED: (Linagliptin [Tradjenta] 5 MG) PO SCH (08:00)
[2017-03-05] MEDS ORDERED: FUROSEMIDE 20 MG TAB PO SCH (08:00)
[2017-03-05] MEDS ORDERED: Herbals/Supplements -Info Only PO SCH (09:00)
[2017-03-05] MEDS: SENNOSIDES/DOCUSATE SODIUM TAB PO SCH ×2 (09:41→09:42)
[2017-03-05] MEDS: FERROUS SULFATE 140 MG TAB.ER PO SCH (09:41)
[2017-03-05] MEDS: ACETAMINOPHEN 500 MG TAB PO SCH (09:42)
[2017-03-05] MEDS: DONEPEZIL 10 MG PO SCH (09:43)
[2017-03-05] MEDS ORDERED: CIPROFLOXACIN 250 MG TAB PO SCH (10:00)
--- NOTE | 2017-03-05 10:39 | PDIAF ---
- Diagnosis Diagnosis: hip fx Code Status: Do Not Resuscitate - Medication Management Discharge Medications: Medications to Continue on Transfer Acetaminophen [Tylenol ES 500 mg (*)] 1,000 mg PO Q8H PRN 09/10/16 [Last Taken Unknown] Aspirin EC [Aspirin EC 81 mg (*)] 81 mg PO DAILY@09/10/16 [Last Taken ] Atorvastatin Calcium [Lipitor 20 mg (*)] 20 mg PO DAILY@09/10/16 [Last Taken 03/01/17] Bisacodyl [Dulcolax] 10 mg RC Q24H PRN 09/10/16 [Last Taken Unknown] Donepezil HCl 10 mg PO DAILY@09/10/16 [Last Taken 03/01/17] Ergocalciferol [Vitamin D2 (*)] 50,000 unit PO Q14D@09/10/16 [Last Taken ] Escitalopram Oxalate [Lexapro 10 MG] 10 mg PO DAILY@09/10/16 [Last Taken ] Furosemide [Lasix 20 MG (*)] 20 mg PO DAILY@09/10/16 [Last Taken 03/01/17] Mag Hydrox/Al Hydrox/Simeth [Maalox Maximum Strength Suspension] 30 ml PO Q8H PRN 09/10/16 [Last Taken Unknown] Sennosides/Docusate Sodium [Senna-Docusate Sodium Tablet] 1 each PO BID@, [Last Taken 03/01/17 07:00] Herbals/Supplements -Info Only 1 ea PO DAILY 03/02/17 [Last Taken Unknown] Insulin Glargine [Lantus 100 UNITS/ML (*)] 27 units SC DAILY@03/02/17 [Last Taken 02/28/17] Insulin Glargine [Lantus 100 UNITS/ML (*)] 36 units SC DAILY@03/02/17 [Last Taken 03/01/17] Linagliptin [Tradjenta] 5 mg PO DAILY@03/02/17 [Last Taken 03/01/17] Ciprofloxacin [Cipro] 250 mg PO BID@1000,2000 tab 03/05/17 [Last Taken Unknown] Ferrous Sulfate [Slow Fe 140 MG (*)] 140 mg PO DAILY tab.er 03/05/17 [Last Taken Unknown] Heparin [Heparin SC 5000 unit/0.5 ml (*)] 5,000 unit SC Q8HRS syr 03/05/17 [ Last Taken Unknown] Polyethylene Glycol 3350 [Miralax 17 gm (*)] 17 gm PO DAILY PRN pkt 03/05/17 [ Last Taken Unknown] oxyCODONE IR [Oxycodone Ir (*)] 5 - 10 mg PO Q4HRS PRN tab 03/05/17 [Last Taken Unknown] Discharge Medications: Refer to the Discharge Home Medication list for PRN reason. - Orders Services needed: Registered Nurse, Physical Therapy, Occupational Therapy Diet Texture: Regular Texture Diet, Thin Liquids, Meds Whole w/Liquids - Labs/Radiology HCT/HGB Date: 03/07/17 - Follow Up Care Current Providers and Referrals: Patient,NotPresent [Unknown] - As per Instructions
[2017-03-05] MEDS: INSULIN GLARGINE 100 UNITS/ML SYRINGE SC SCH (10:52)
--- NOTE | 2017-03-05 12:45 | ASMTCMCOM ---
CM Note CM Note Notes: Chart reviewed. Medically stable for discharge to [facility]. All discharge info updated per allscripts. RN knows to call report, transport per [facility] at 4:30 pm. She will transfer via stretcher and oxygen. CM available should needs arise. Date Signed: 03/05/2017 12:44 PM Electronically Signed By:Kennedi Chavarria RN
--- NOTE | 2017-03-05 12:45 | ASMTCMCOM ---
CM Note CM Note Notes: Chart reviewed. Medically stable for discharge to [facility]. All discharge info updated per allscripts. RN knows to call report, transport per [facility] at 4:30 pm. She will transfer via stretcher and oxygen. CM available should needs arise. Date Signed: 03/05/2017 12:44 PM Electronically Signed By:Kennedi Chavarria RN
--- NOTE | 2017-03-05 12:56 | GDS ---
[f rep st] DISCHARGE SUMMARY DISCHARGE DIAGNOSES: 1. Left hip fracture. 2. Gait instability. 3. Acute renal failure. 4. Significant leukocytosis. 5. Urinary tract infection. 6. Diabetes mellitus, type 2. 7. Anemia requiring transfusion. 8. Hypertension. 9. Dementia. 10. Hard of hearing. CONSULTATIONS: Orthopedics. STUDIES AND PROCEDURES DONE: Left femur open reduction, internal fixation. PHYSICAL EXAM: GENERAL: The patient is alert. VITAL SIGNS: Afebrile at 36.8, pulse is 75, respira tory rate 16, blood pressure is 105/48, she is saturating 94% on 3 L. I have seen and evaluated the patient on the day of discharge. HOSPITAL COURSE: The patient is an 86-year-old female, who suffered a mechanical fall, and presented to the emergency room with complaints of hip pain. She was evaluated and diagnosed with: 1. Left hip fracture. During this hospitalization, she had an ORIF performed by Dr. Avila. She lau s responded well to this procedure, and will follow up in the outpatient setting. 2. Gait instability. This is acute on chronic, resulting in fall, requiring further therapies. 3. Acute renal failure. This has improved with hydration. However, we will continue to avoid nephr otoxic medications. 4. Leukocytosis. This appears to be in the setting of a urinary tract infection. She is responding to antibiotic therapy. 5. Diabetes mellitus. The patient's medications have been reinitiated. Her blood glucose is contro lled. 6. Urinary tract infection. The patient is being treated with antibiotic therapy during this hospit alization, based on her white count as well as an abnormal urinalysis. Her urine culture does not de monstrate significant growth. However, the patient received antibiotic therapy prior to her urine cu lture. We will continue to treat for urinary tract infection with ciprofloxacin. 7. Anemia. The patient did require transfusion of 1 unit of packed red blood cells during this hosp italization. She has also been initiated on oral iron replacement. Her hemoglobin and hematocrit ar e stable at the time of disposition, with no signs of acute blood loss or bleeding. 8. Hypertension. Blood pressure is stable. Her ARB has been discontinued during this hospitalizati on secondary to her renal function. This could be re-initiated in the future, if needed. 9. Dementia. She is at her baseline with regard to this condition. 10. Hard of hearing. The patient does not wear hearing aids. A speaker device has been very helpfu l in communicating with the patient. It does allow her to answer questions appropriately. 11. DVT prophylaxis. She will continue subcu heparin in the outpatient setting. 12. Disposition. She will be discharged to group home facility for further management and reha bilitation. There are no pending studies. DISCHARGE MEDICATIONS: Please refer to EMR form. The patient's Tradjenta, as well as her antihypert ensive medication, have been placed on hold during this hospitalization, and could be re-initiated in the future if felt appropriate. Specifically, her Cozaar 25 mg daily, as well as her VESIcare have been discontinued. DISCHARGE TIME: I spent greater than 35 minutes in the care, coordination, and management of the faizan pavon's disposition. FOLLOWUP: Will be with her primary care physician, as well as Dr. Avila of Orthopedics. /[id number]/MODL
[2017-03-05 15:10] VITALS: BP 131/55; PULSE 78; TEMP 98.7; O2SAT 91
== END 2017-03-05 16:44 | DRG 481 ==
LOC: EDUNIT# → F3N 03-02 01:05
PROVIDERS: ADMIT Internal Medicine; ATTEND Internal Medicine
PROC: 0QS706Z Reposition Left Upper Femur with Intramedullary Internal Fixation Device, Open Approach (ICD-10-PCS; principal; 2017-03-01 22:00)
CPT/HCPCS: 82947-QW; 92610-GN; 96374; 97161-GP; 97166-GO; 97530-GP; 97535-GO; C1713; C1769; J0690; J0696; J1100; J1815; J2405; J2704; J3010; P9016